=== PATIENT | female | born 1980 | race Two or more races ===

== ENCOUNTER 2020-09-10 09:15 | Emergency (ER) | payer MEDICAID, SELFPAY ==
--- NOTE | 2020-09-10 10:08 | CT_ITS ---
EXAMINATION: CT ABDOMEN AND PELVIS WITH CONTRAST CLINICAL INFORMATION: Right lower quadrant abdominal pain. Question appendicitis. COMPARISON: CT abdomen and pelvis 04/23/2011 TECHNIQUE: Multidetector volumetric images were obtained from the superior aspect of the liver through the pubic symphysis following administration 85 mL of Omnipaque 350 intravenous contrast. Sagittal and coronal reformatted images were obtained on the technologist's workstation. Oral contrast: No. This CT examination was performed using dose optimization techniques as appropriate, variously including the following: *Automated exposure control *Adjustment of mA and/or kV according to patient size (this includes techniques or standardized protocols for targeted exams where dose is matched to indication/reason for exam; i.e. extremities or head) *Use of iterative reconstruction technique DLP: 527 mGy-cm FINDINGS: LUNG BASES: The lung bases are clear. LIVER, GALLBLADDER, AND BILIARY TREE: The liver is normal in size, shape, and attenuation. No focal hepatic lesion or biliary ductal dilatation is present. The gallbladder is unremarkable with no evidence of radiopaque gallstones, gallbladder wall thickening, or obvious pericholecystic inflammatory changes. PANCREAS: Unremarkable. SPLEEN: Unremarkable. ADRENAL GLANDS: Unremarkable. KIDNEYS AND URETERS: The kidneys are normal in size, shape, and attenuation. No hydronephrosis, hydroureter, or calculi seen. No perinephric stranding. BLADDER: Unremarkable. GASTROINTESTINAL TRACT: There is scattered stool in the colon without distention. A few scattered diverticula are seen throughout the colon, as well. The small bowel loops are normal caliber. Appendix is normal. No inflammatory process seen in the abdomen. ABDOMINAL WALL: No significant hernia is appreciated. LYMPH NODES: Normal. VASCULAR: A retroaortic left renal vein is noted. The aorta is unremarkable. PELVIC VISCERA: The uterus is anteverted and appears unremarkable. No adnexal mass seen. There is no free fluid. OSSEOUS STRUCTURES: There are degenerative disc changes at L2-L3 and T11-T12 disc levels with mild ventral spondylosis. No lytic or sclerotic process seen. CT/CT abdomen pelvis w con IMPRESSION: Colonic diverticulosis without diverticulitis. Mild constipation. No acute intra-abdominal process seen.
[2020-09-10 10:10] VITALS: PULSE 59; RESP 16; TEMP 37.1; O2SAT 98; BMI 32.1
--- NOTE | 2020-09-10 10:22 | ED.ABDPAIN ---
HPI - Abdominal Pain General Stated Complaint: abd pain Time Seen by Provider: 09/10/20 10:07 Source: patient Mode of arrival: ambulatory Limitations: no limitations History of Present Illness HPI narrative: 40yoF c PMHx of atrial fibrillation, Graves disease, depression and substance abuse presenting to the ED c c/o right lower quadrant abdominal pain with associated nausea since yesterday. Denies any other symptoms related to this. Denies recent travel or sick contacts. Related Data Allergies Allergy/AdvReac Type Severity Reaction Status Date / Time acetaminophen AdvReac Intermediate DIARRHEA Verified 09/10/20 10:25 [From Tylenol-Codeine #3] codeine AdvReac Intermediate DIARRHEA Verified 09/10/20 10:25 [From Tylenol-Codeine #3] Review of Systems Review of Systems Constitutional : No Fever, No Chills Cardiovascular : No Chest Pain, No SOB Respiratory : No Cough Gastrointestinal : + Nausea, No Vomiting, No Diarrhea, + abdominal Pain, No Hematochezia, No Melena Genitourinary : No irregular bleeding, No Dysuria, No Urinary Frequency, No Hematuria,No Urinary Incontinence, No Urgency, No Flank Pain Musculoskeletal : No joint pain, No Myalgias, No Joint Swelling Skin : No Skin Lesions, No rash Neuro : No Weakness Yes all other systems are reviewed and are negative Physical Exam Vital Signs: Vital Signs: Last Vital Signs Temp 98.8 F 09/10/20 10:10 Pulse 59 09/10/20 10:10 Resp 16 09/10/20 10:10 BP 131/76 09/10/20 10:40 Pulse Ox 98 09/10/20 10:10 Body Mass Index 32.1 vital signs have been reviewed as normal and appeared to be correct. Blood pressure normal. Heart rate normal. Respiration rate normal. Temperature normal. Oxygen saturation normal. Appearance: Alert. Oriented X3. No acute distress. Head: Normal external exam. Normocephalic. Eyes: PERRLA. EOMI. Conjunctiva and sclera normal. Eyelids normal. ENT: Pharynx normal. Uvula midline. Moist mucous membranes. Neck: Normal inspection. Neck supple. FROM. No adenopathy. No meningeal signs. CVS: Normal heart rate and rhythm. Heart sound normal. No murmurs noted. Pulses normal throughout. Respiratory: No respiratory distress. Painless inspiration. Breath sounds normal. No wheezes/rales/rhonchi noted. Chest nontender. No accessory muscle usage noted or decreased air movement noted. Abdomen: Soft and TTP at RLQ abdomen with guarding. No rigidity. Bowel sounds normal in all 4 quadrants. No distention noted. No organomegaly noted. No visible injury noted. No rebound tenderness. Positive Rovsing sign. Positive obturator's sign. Positive psoas sign. Negative Diana sign Back: No CVA tenderness. Full range of motion noted. Skin: Skin warm and dry. Normal skin color. Normal skin turgor. No rashes/lesions/lacerations noted. Extremities: Extremities exhibit normal range of motion. Extremities nontender. Neuro: Oriented X 3. No motor deficit. No sensory deficit. Reflexes normal. Course Course Course Narrative: 10:19am - 40yoF c PMHx of atrial fibrillation, Graves disease, depression and substance abuse presenting to the ED c c/o right lower quadrant abdominal pain with associated nausea since yesterday. - concern for appendicitis vs kidney stone vs pyelonephritis/UTI. - Plan: Labs, UA, UHCG, CT scan of abd/pelvis c IV contrast. Provide IV fluids, 2 mg of morphine, 4 mg of Zofran then re-evaluate. MDM - Abdominal Pain Medical Records Attestation: I reviewed the patient's medical records. Lab Data Attestation: I reviewed the patient's lab results. Result diagrams: 09/10/20 10:19 12 10:19 Labs: Lab Results 09/10/20 09/10/20 Range/Units 10:15 10:19 PT 11.7 (10.8-13.0) SEC INR 1.0 (0.9-1.1) APTT 33.6 (24.1-38.0) SEC Urine Color YELLOW Urine Appearance HAZY Urine pH 7.0 (5.0-8.0) Ur Specific [place] 1.010 (1.005-1.025) Urine Protein NEG (NEG-TRACE) MG/DL Urine Glucose (UA) NEG (NEG) MG/DL Urine Ketones NEG (NEG) MG/DL Urine Blood 3+ H (NEG) Urine Nitrite NEG (NEG) Ur Leukocyte Esterase NEG (NEG) Urine RBC 5-9 H (0) /HPF Urine WBC 0 (0-4) /HPF Ur Squamous Epith Cells 1+ /LPF Urine Bacteria NONE /LPF Urine Test NEGATIVE (NEGATIVE) [facility] Past Medical History Attestation statement: The following information was validated with the patient. Social History Social History Smoked in Last 30 Days: No Use of substances other than those prescribed or required for medical reasons: No
[2020-09-10 10:24] LABS: Glucose Urine UA NEG (NEG); Leukocyte Esterase Urine NEG (NEG); Nitrite Urine NEG (NEG); Urine Blood 3+ (NEG); Urine Ketones NEG (NEG); Urine Protein NEG (NEG-TRACE)
[2020-09-10] MEDS: 0.9 % Sodium Chloride 1,000 ML 999 ML IVCONT (10:26)
[2020-09-10 10:27] LABS: Appearance Urine HAZY; Color Urine YELLOW
[2020-09-10 10:29] LABS: UPreg QC Valid YES; Urine Pregnancy NEGATIVE (NEGATIVE)
[2020-09-10] MEDS: ondansetron HCL 4 MG/2 ML VIAL IVPUSH (10:31)
[2020-09-10 10:35] LABS: MANUAL DIFF FLAG NO
[2020-09-10 10:37] LABS: Squamous Epithelial Cell Urine 1+ /LPF; WBC Urine 0 /HPF (0-4)
[2020-09-10] MEDS: Morphine Sulfate 4 MG/ML CARTRIDGE 2 MG IVPUSH (10:37)
[2020-09-10 10:40] VITALS: BP 131/76
[2020-09-10 10:47] LABS: Prothrombin Time 11.7 SEC (10.8-13.0)
[2020-09-10 10:48] LABS: Basophils Percent Auto 0.2 % (0-2); Eosinophils Absolute Auto 0.1 X10*3/uL (0.0-0.4); Eosinophils Percent Auto 0.9 % (0-4); Hematocrit 42.8 % (37-47); Hemoglobin 13.8 g/dl (12.0-16.0); Imm Gran Abs Auto 0.01 X10*3/uL (0.00-0.03); Imm Gran Pct Auto 0.2 % (0.0-0.4); Lymphocytes Absolute Auto 1.3 X10*3/uL (1.2-4.9); Mean Corpuscular HGB Conc 32.2 g/dl (31.0-35.0); Mean Corpuscular Hemoglobin 29.7 pg (27.0-33.0); Mean Platelet Volume 9.6 fL (9.4-12.3); Monocytes Absolute Auto 0.6 X10*3/uL (0.1-1.2); Monocytes Percent Auto 11.3 % (2-11); Neutrophils Absolute Auto 3.4 X10*3/uL (2.0-8.3); Neutrophils Percent Auto 63.4 % (45-73); Platelet Count 266 X10*3/uL (160-400); Red Blood Count 4.65 X10*6/uL (4.20-5.50); Red Cell Distribution Width 11.2 % (11.0-16.0); White Blood Count 5.3 X10*3/uL (4.8-10.8)
[2020-09-10 10:49] LABS: Partial Thromboplastin Time 33.6 SEC (24.1-38.0)
[2020-09-10 11:10] LABS: Alanine Aminotransferase 14 U/L (0-31); Albumin Level 3.9 g/dL (3.5-5.0); Alkaline Phosphatase 62 U/L (39-117); Anion Gap 11 (12-20); Aspartate Amino Transferase 19 U/L (5-31); Bilirubin Direct 0.4 mg/dL (0.0-0.5); Bilirubin Total 0.8 mg/dL (0.0-1.0); Blood Urea Nitrogen 10 mg/dL (9-16); Calcium 8.7 mg/dL (8.4-10.2); Carbon Dioxide 28 mmol/L (22-29); Chloride 103 mmol/L (96-108); Creatinine Clr Calc Pharmacy 92.4; Estimated Glomerular Filt Rate > 60; Glucose Random 87 mg/dL (60-115); Potassium 4.5 mmol/l (3.3-5.1); Sodium 137 mmol/L (135-145); Total Protein 7.2 g/dL (6.5-8.0)
[2020-09-10 11:23] VITALS: BP 155/78; PULSE 64; O2SAT 97
[2020-09-10] MEDS: iohexoL 350 MG/ML 100 ML INFUS..BTL 85 ML IV (12:02)
--- NOTE | 2020-09-10 13:41 | PC.NURSE ---
pt reports nausea and abdominal pain. HE is making a growling vocalization. Pt was medicated for nausea, was quiet for about 10 minutes but reports SX have not improved. VS stable.
[2020-09-10 14:29] VITALS: BP 145/77; PULSE 59; RESP 16; TEMP 37.3; O2SAT 98
== END 2020-09-10 15:45 | disposition home or self-care (01) ==
PROVIDERS: Physician Assistant Medical; Emergency Provider Emergency Medicine
DX: K57.90 Diverticulosis of intestine, part unspecified, without perforation or abscess without bleeding (principal); K59.00 Constipation, unspecified; I48.91 Unspecified atrial fibrillation; F19.10 Other psychoactive substance abuse, uncomplicated; E05.00 Thyrotoxicosis with diffuse goiter without thyrotoxic crisis or storm
CPT/HCPCS: 36415; 74177; 80048; 80076; 81001; 81025; 83735; 85025; 85610; 85730; 96361; 96374; 96375; 96376; 99284; J2270; J2405; Q9967

== ENCOUNTER 2020-10-20 11:36 | Outpatient (REF) | payer MEDICAID, SELFPAY | END 2020-10-20 11:37 | disposition home or self-care (01) | LOC: HO.LAB 11:36 | PROVIDERS: Visit Provider Internal Medicine | DX: Z20.822 Contact with and (suspected) exposure to COVID-19 (principal) | CPT/HCPCS: 36415; C9803; U0003 ==

== ENCOUNTER 2020-11-13 09:58 | Outpatient (REF) | payer MEDICAID, SELFPAY ==
--- NOTE | ~2020-11-13 | US_ITS ---
EXAMINATION: US ABDOMEN COMPLETE CLINICAL INFORMATION: Right lower quadrant pain. COMPARISON: CT abdomen and pelvis 09/10/2020. Ultrasound abdomen complete 04/21/2017. TECHNIQUE: Real-time imaging of the abdominal viscera. FINDINGS: PANCREAS: The visualized pancreatic head and body are unremarkable. The tail is obscured by overlying bowel gas. ABDOMINAL AORTA: The proximal, mid, and distal segments are normal in caliber. INFERIOR VENA CAVA: Visualized portions are normal. LIVER: Normal. The liver is normal in size. The liver contour is normal. Parenchymal echogenicity is normal. No focal hepatic lesion. There is no intrahepatic biliary duct dilatation seen. GALLBLADDER: Normal. The gallbladder is physiologically distended without evidence of stones, sludge, polyps, wall thickening or pericholecystic fluid. COMMON BILE DUCT: Normal in caliber measuring 0.3 cm in diameter. RIGHT KIDNEY: Normal. No hydronephrosis. No renal calculi or focal parenchymal lesions. The kidney measures 11.0 cm in maximum dimension. LEFT KIDNEY: Simple upper pole cyst measuring 0.5 cm. No hydronephrosis or renal calculi. The kidney measures 10.6 cm in maximum dimension. SPLEEN: Normal. The spleen measures 8.7 cm in maximum dimension. FREE FLUID: None. US/US abdomen complete IMPRESSION: Unremarkable examination.
== END 2020-11-13 09:59 | disposition home or self-care (01) ==
LOC: HO.US 09:58
PROVIDERS: Visit Provider Nurse Practitioner Primary Care
DX: R10.31 Right lower quadrant pain (principal)
CPT/HCPCS: 76700

== ENCOUNTER 2020-11-17 10:02 | Outpatient (REF) | payer MEDICAID, SELFPAY ==
[2020-11-17 11:39] LABS: Free T4 (Free Thyroxine) 1.19 ng/dL (0.71-1.85); Thyroid Stimulating Hormone 0.85 uIU/mL (0.32-4.0); Vitamin D 25-OH Total 43.7 ng/mL (>30)
== END 2020-11-17 10:03 | disposition home or self-care (01) ==
LOC: HO.LAB 10:02
PROVIDERS: Visit Provider Internal Medicine Endocrinology, Diabetes & Metabolism
DX: E89.0 Postprocedural hypothyroidism (principal); R79.89 Other specified abnormal findings of blood chemistry
CPT/HCPCS: 36415; 82306; 84439; 84443

== ENCOUNTER → 2020-11-27 10:46 | Outpatient (BNVA) | payer MEDICAID, SELFPAY | PROVIDERS: Visit Provider Internal Medicine Endocrinology, Diabetes & Metabolism ==

== ENCOUNTER 2021-04-02 10:30 | Outpatient (REF) | payer MEDICAID, SELFPAY ==
--- NOTE | ~2021-04-02 | US_ITS ---
EXAMINATION: PELVIC ULTRASOUND CLINICAL INFORMATION: Dysmenorrhea COMPARISON: Previous pelvic ultrasound August 2020 TECHNIQUE: Transabdominal and transvaginal pelvic ultrasound was performed. Transvaginal exam was performed for better visualization of the uterus and ovaries. Exam is limited due to body habitus. FINDINGS: The uterus is anteverted and measures 9 x 4 x 5 cm in dimension. No focal uterine lesion is seen. Endometrial thickness is normal measuring 1 cm. The cervix is normal appearing. The right ovary is normal-appearing and measures 2 x 1.8 x 1.8 cm. The left ovary is not seen. There is no fluid in the pelvis. US/US pelvic and transvaginal IMPRESSION: Limited exam. Normal-appearing uterus and right ovary. Left ovary not seen.
== END 2021-04-02 10:31 | disposition home or self-care (01) ==
LOC: HO.US 10:30
PROVIDERS: PCP Nurse Practitioner Primary Care; Visit Provider Advanced Practice Midwife
DX: N94.6 Dysmenorrhea, unspecified (principal); N92.0 Excessive and frequent menstruation with regular cycle
CPT/HCPCS: 76830; 76856

== ENCOUNTER 2021-05-25 09:38 | Emergency (ER) | payer MEDICAID, SELFPAY ==
[2021-05-25 09:55] VITALS: BP 98/60; PULSE 68; RESP 18; TEMP 36.5; O2SAT 98; BMI 32.9
--- NOTE | 2021-05-25 09:57 | ED.NECK ---
HPI - Neck Pain/Injury General Chief Complaint: Neck Pain/Injury Stated Complaint: NECK PAIN Time Seen by Provider: 05/25/21 09:57 Source: patient Mode of arrival: ambulatory Limitations: no limitations History of Present Illness HPI Narrative: 40 y/o female presenting with left sided neck pain for the last 2 weeks. 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 She does a lot of lifting and physical work. She reports the pain is located long the left posterior portion of her neck and radiates into her left posterior shoulder. It is worse with rotation of her head. No fevers, headaches, no known specific injury. No numbness or tingling in her arm. No arm weakness. She took Tylenol yesterday with some mild improvement. MD complaint: neck pain Onset (ago): week(s) (2) Place: home and work Radiation: left lateral, left shoulder and upper back Severity: moderate Severity scale (1-10): 6 Quality: aching and spasming Duration: constant Relieving factors: immobilization and remaining still Exacerbating factors: movement of neck Context: unknown Associated symptoms: none Treatments prior to arrival: none Related Data Home Medications Medication Instructions Recorded Confirmed cetirizine 10 mg tablet 10 mg PO DAILY PRN 11/27/20 11/27/20 Previous Rx's Medication Instructions Recorded cholecalciferol (vitamin D3) 25 25 mcg PO DAILY 30 Days #30 cap 11/27/20 mcg (1,000 unit) capsule Levoxyl 137 mcg tablet 137 mcg PO DAILY 30 Days #30 tab NS 01/15/21 (levothyroxine) cyclobenzaprine 5 mg tablet 5 mg PO TID PRN #14 tab 05/25/21 ibuprofen 600 mg tablet 600 mg PO Q8H PRN #14 tab 05/25/21 lidocaine 5 % topical patch 1 patch TOPICAL DAILY #15 ea 05/25/21 (Lidoderm) Allergies Allergy/AdvReac Type Severity Reaction Status Date / Time acetaminophen AdvReac Intermediate DIARRHEA Verified 09/10/20 10:25 [From Tylenol-Codeine #3] codeine AdvReac Intermediate DIARRHEA Verified 09/10/20 10:25 [From Tylenol-Codeine #3] Review of Systems Review of Systems: Constitutional: No Fever, No Chills ENT/Mouth: No sore throat, No Swallowing Difficulty Cardiovascular: No Chest Pain, No SOB Respiratory: No Cough, No Sputum Musculoskeletal: No joint pain, + Myalgias Skin: No Skin Lesions, No rash Neuro: No Weakness, No Numbness, No Dizziness, No Headache Heme/Lymph: No Lymphadenopathy PMFSH Past Medical History Attestation statement: The following information was validated with the patient. Medical History History of Graves' disease Hypothyroidism Vitamin D deficiency Surgical History Hx of total thyroidectomy Hx of tubal ligation Family History Family History (Updated 11/27/20 @ 10:48 by IVONE Mina) Father Diabetes mellitus Mother No problems noted. Social History Social History (Updated 11/27/20 @ 10:48 by IVONE Mina) Advance Directives: No Advance Directives Information Provided: No Patient : No Physical Exam Vital Signs: Vital Signs: Last Vital Signs Temp 97.7 F 05/25/21 09:55 Pulse 68 05/25/21 09:55 Resp 18 05/25/21 09:55 BP 98/60 05/25/21 09:55 Pulse Ox 98 05/25/21 09:55 Body Mass Index 32.9 Appearance: Alert. Oriented X3. No acute distress. Eyes: Pupils equal, round and reactive to light. ENT: Pharynx normal. Neck: Normal inspection. Neck supple. Left lateral and posterior neck with soft tissue tenderness and palpable spasm of upper trapezius. pain with rotation of the head to the left and right.. no nuchal rigidity. CVS: Normal heart rate and rhythm. Pulses normal. Skin: Skin warm and dry. Normal skin color. Normal skin turgor. No rashes. Extremities: No lower extremity edema. Normal inspection of bilateral UE with normal passive ROM of bilateral shoulder. Equal supervisor fiber locking strength. Neuro: Oriented X 3. No motor deficit. No sensory deficit. Course Course Course Narrative: 40 y/o female presenting with left sided neck and upper back pain x2 week. Exam and clinical presentation are consistent with muscle strain and spasm. Will treat with NSAID, muscle relaxer and lidoderm. She is stable for d/c home. Encouraged to f/u with PCP, she would likely benefit from PT. She agrees with plan. Work note provided. Critical Care Time Critical Care Time Critical Care Time: No Discharge Plan Discharge Clinical Impression: Strain of neck muscle Qualifiers: Encounter type: initial encounter Qualified Code(s): S16.1XXA - Strain of muscle, fascia and tendon at neck level, initial encounter Patient Disposition: Home, Self-Care Instructions: Cervical Strain (ED) Additional Instructions: Your pain is most likely due to strain and spasm of the muscles on the left side of your neck. Limit lifting and rest. Use heat several times per day for 20 minutes at time. You can try gentle massage and stretching of the muscles as tolerated. Take medications as prescribed to help with pain and discomfort. Follow up with your Primary Care Doctor this week. If your pain worsens, if you develop new numbness, tingling, weakness, or any other concerning symptomsl 911 or come back to the ER right away for evaluation. Prescriptions: New cyclobenzaprine 5 mg tablet 5 mg PO TID PRN (Reason: muscle spasm) Qty: 14 RF: 0 lidocaine [Lidoderm] 5 % adhesive patch,medicated 1 patch topical DAILY Qty: 15 RF: 0 ibuprofen 600 mg tablet 600 mg PO Q8H PRN (Reason: pain) Qty: 14 RF: 0 No Action levothyroxine [Levoxyl] 137 mcg tablet 137 mcg PO DAILY 30 Days Qty: 30 RF: 11 cetirizine 10 mg tablet 10 mg PO DAILY PRNRF: 0 cholecalciferol (vitamin D3) 25 mcg (1,000 unit) capsule 25 mcg PO DAILY 30 Days Qty: 30 RF: 11 Referrals: Radha Crum MENTAL HEALTH PROGRAM SPECIALIST [Primary Care Provider] - 2 days Stand Alone Forms: Work/School Release
== END 2021-05-25 10:38 | disposition home or self-care (01) ==
PROVIDERS: Emergency Provider Emergency Medicine; PCP Nurse Practitioner Primary Care
DX: S16.1XXA Strain of muscle, fascia and tendon at neck level, initial encounter (principal); M54.2 Cervicalgia; M54.5 Low back pain; X50.0XXA Overexertion from strenuous movement or load, initial encounter; Y93.9 Activity, unspecified; Y92.9 Unspecified place or not applicable; Y99.0 Civilian activity done for income or pay; Z79.899 Other long term (current) drug therapy
CPT/HCPCS: 99283

== ENCOUNTER 2021-07-17 08:44 | Emergency (ER) | payer MEDICAID, SELFPAY ==
[2021-07-17 08:49] VITALS: BP 139/76; PULSE 67; RESP 18; TEMP 36.5; O2SAT 97; BMI 33.3
--- NOTE | 2021-07-17 09:48 | ED.SKABFB ---
HPI - Skin/Abscess/Foreign Bdy General Chief complaint: Skin/Abscess/Foreign Body Stated complaint: itchy painful hands Time Seen by Provider: 07/17/21 09:14 Source: patient Mode of arrival: ambulatory Limitations: no limitations History of Present Illness complaint: rash Onset (ago): day(s) (Past few days worse today) Location: LUE, L hand, R hand, LLE and RLE Severity: mild Quality: constant and pruritic Pain Consistency: constant Relieving factors: none Exacerbating factors: none Context: none Associated symptoms: denies other symptoms Treatments prior to arrival: none Related Data Home Medications Medication Instructions Recorded Confirmed cetirizine 10 mg tablet 10 mg PO DAILY PRN 11/27/20 11/27/20 Previous Rx's Medication Instructions Recorded cholecalciferol (vitamin D3) 25 25 mcg PO DAILY 30 Days #30 cap 11/27/20 mcg (1,000 unit) capsule Levoxyl 137 mcg tablet 137 mcg PO DAILY 30 Days #30 tab NS 01/15/21 (levothyroxine) cyclobenzaprine 5 mg tablet 5 mg PO TID PRN #14 tab 05/25/21 ibuprofen 600 mg tablet 600 mg PO Q8H PRN #14 tab 05/25/21 lidocaine 5 % topical patch 1 patch TOPICAL DAILY #15 ea 05/25/21 (Lidoderm) diphenhydramine HCl 25 mg tablet 50 mg PO Q6-8H PRN #10 tab 07/17/21 (Benadryl Allergy) famotidine 20 mg tablet (Pepcid) 20 mg PO BID #10 tab 07/17/21 hydrocortisone 2.5 % topical 1 appl TOPICAL QD-TID PRN #454 g 07/17/21 ointment prednisone 20 mg tablet 40 mg PO DAILY 5 Days #10 tab 07/17/21 Allergies Allergy/AdvReac Type Severity Reaction Status Date / Time acetaminophen AdvReac Intermediate DIARRHEA Verified 09/10/20 10:25 [From Tylenol-Codeine #3] codeine AdvReac Intermediate DIARRHEA Verified 09/10/20 10:25 [From Tylenol-Codeine #3] Review of Systems Review of Systems: Constitutional : No Fever, No Chills , no body aches, no recent illness Head/Face: No facial swelling, No facial redness ENT/Mouth : No oral/throat swelling, No Hoarseness, No Swallowing Difficulty Eyes: No Eye Pain, No Swelling, No Redness Cardiovascular : No Chest Pain, No SOB, No palpitations Respiratory : No Cough, No Sputum, No Wheezing, No Smoke Exposure, No Dyspnea Gastrointestinal : No Nausea, No Vomiting, No Diarrhea, No abdominal Pain Genitourinary : No Dysuria, No Urinary Frequency, No Hematuria Musculoskeletal : No joint pain, No Myalgias, No Joint Swelling Skin : No Skin Lesions, positive rash Neuro : No Weakness, No Numbness, No Headache, No dizziness, No tingling Psych : No Anxiety/Panic, No Depression Heme/Lymph: No Bruising, No Lymphadenopathy Endocrine : No Polyuria, No Polydipsia Denies changes in lotions or detergents. Denies new medications or any changes in medications. Denies drainage from rash. Denies any recent sick contacts or recent travel. Yes all other systems are reviewed and are negative [facility] Past Medical History Attestation statement: The following information was validated with the patient. Medical History History of Graves' disease Hypothyroidism Vitamin D deficiency Surgical History Hx of total thyroidectomy Hx of tubal ligation Family History Family History Father Diabetes mellitus Mother No problems noted. Social History Social History Advance Directives: No Physical Exam Vital Signs: Vital Signs: Last Vital Signs Temp 97.7 F 07/17/21 08:49 Pulse 67 07/17/21 08:49 Resp 18 07/17/21 08:49 BP 139/76 07/17/21 08:49 Pulse Ox 97 07/17/21 08:49 Body Mass Index 33.3 vital signs have been reviewed as normal and appeared to be correct. Blood pressure normal. Heart rate normal. Respiration rate normal. Temperature normal. Oxygen saturation normal. Appearance: Alert. Oriented X3. No acute distress. Head: Normal external exam. Normocephalic. Eyes: PERRLA. EOMI. Conjunctiva and sclera normal. Eyelids normal. ENT: Pharynx normal. Uvula midline. Moist mucous membranes. No lesions noted in the oropharynx. Neck: Normal inspection. Neck supple. FROM. No adenopathy. No meningeal signs. CVS: Normal heart rate and rhythm. Heart sound normal. No murmurs noted. Pulses normal throughout. Respiratory: No respiratory distress. Painless inspiration. Breath sounds normal. No wheezes/rales/rhonchi noted. Chest nontender. No accessory muscle usage noted or decreased air movement noted. Abdomen: Soft and nontender. Nondistended. No guarding. No rigidity. Bowel sounds normal in all 4 quadrants. No distention noted. No organomegaly noted. No visible injury noted. No rebound tenderness. Negative Rovsing sign. Negative obturator's sign. Negative psoas sign. Negative Diana sign. Back: No CVA tenderness. Full range of motion noted. Skin: Skin warm and dry. Normal skin color. Normal skin turgor. Patient noted to have macular papular rash to the palms of the hands and on the dorsal aspect near the wrist not in between the web spaces and it appears to be going up the right forearm and she is noted to have some on the left upper arm and her bilateral ankles. There is no rash noted to the soles of the feet. She reports it is pruritic in nature. No lesions/vesicle/pustules are noted. No lacerations noted. Extremities: Extremities exhibit normal range of motion. Extremities nontender. Neuro: Oriented X 3. No motor deficit. No sensory deficit. Reflexes normal. Normal steady gait. Course Course Course Narrative: 40-year-old female presenting to the ED with complaints of an itchy rash to the bilateral hands that is starting to go up her arms and around her ankles for the past few days worse today. On exam she has macular papular rash to the palms of her hands. No vesicles are noted. It appears almost like [id number] although she has not been around any children and there is no recent sick contacts or recent travel. 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 She reports that she was tested for syphilis a few months ago was negative. She also reports she has had allergy testing in the past and has had many seasonal allergies. Therefore I explained to her that we should obtain an RPR to test for syphilis. And will treat for possible allergic reaction. Along with instructions to follow-up with PCP for allergy testing and to return if any new or worsening symptoms. Patient understands agrees with this plan. MDM - Skin/Abscess/Foreign Bdy Medical Records Attestation: I reviewed the patient's medical records. Lab Data Attestation: I reviewed the patient's lab results. Discharge Plan Discharge Clinical Impression: Allergic reaction Patient Disposition: Home, Self-Care Instructions: General Allergic Reaction (ED) Additional Instructions: You have pending lab results if any are positive you will be contacted. Prescriptions: New diphenhydramine HCl [Benadryl Allergy] 25 mg tablet 50 mg PO Q6-8H PRN (Reason: allergic reaction) Qty: 10 RF: 0 prednisone 20 mg tablet 40 mg PO DAILY 5 Days Qty: 10 RF: 0 famotidine [Pepcid] 20 mg tablet 20 mg PO BID Qty: 10 RF: 0 hydrocortisone 2.5 % ointment 1 appl topical QD-TID PRN (Reason: skin irritation) Qty: 454 RF: 0 No Action levothyroxine [Levoxyl] 137 mcg tablet 137 mcg PO DAILY 30 Days Qty: 30 RF: 11 cyclobenzaprine 5 mg tablet 5 mg PO TID PRN (Reason: muscle spasm) Qty: 14 RF: 0 lidocaine [Lidoderm] 5 % adhesive patch,medicated 1 patch topical DAILY Qty: 15 RF: 0 ibuprofen 600 mg tablet 600 mg PO Q8H PRN (Reason: pain) Qty: 14 RF: 0 cetirizine 10 mg tablet 10 mg PO DAILY PRNRF: 0 cholecalciferol (vitamin D3) 25 mcg (1,000 unit) capsule 25 mcg PO DAILY 30 Days Qty: 30 RF: 11 Referrals: Radha Crum, MECHANICAL MAINTENANCE FOREMAN [Primary Care Provider] - 2 days Stand Alone Forms: Work/School Release Print Language: Dominican
[2021-07-17] MEDS: Famotidine 20 MG TABLET PO (09:59)
[2021-07-17] MEDS: predniSONE 20 MG TABLET 40 MG PO (09:59)
[2021-07-17] MEDS: diphenhydrAMINE HCL 25 MG TABLET PO (09:59)
[2021-07-17 10:51] LABS: Syphilis Screen Nonreactive (Nonreactive)
== END 2021-07-17 11:04 | disposition home or self-care (01) ==
PROVIDERS: Physician Assistant Medical; Emergency Provider Emergency Medicine; PCP Nurse Practitioner Primary Care
DX: L23.9 Allergic contact dermatitis, unspecified cause (principal); L29.9 Pruritus, unspecified; Z79.899 Other long term (current) drug therapy
CPT/HCPCS: 36415; 86780; 99283; Q0163

== ENCOUNTER 2021-09-04 08:47 | Emergency (ER) | payer MEDICAID, SELFPAY ==
[2021-09-04 09:10] VITALS: BP 110/42; PULSE 79; RESP 18; TEMP 36; O2SAT 97; BMI 33.0
--- NOTE | 2021-09-04 09:47 | ECG_ITS ---
Test Reason : GEN MED Blood Pressure : / mmHG Vent. Rate : 066 BPM Atrial Rate : 066 BPM P-R Int : 208 ms QRS Dur : 084 ms QT Int : 380 ms P-R-T Axes : 043 041 030 degrees QTc Int : 398 ms Normal sinus rhythm Normal ECG When compared with ECG of 14-FEB-2015 13:58, Sinus rhythm has replaced Atrial fibrillation Vent. rate has decreased BY 62 BPM QRS voltage has decreased Nonspecific T wave abnormality no longer evident in Lateral leads Referred By: Pat Roman Electronically Signed By:Kaveh Saenz
[2021-09-04] MEDS: Lidocaine 4 % Patch ADH..PATCH 1 PATCH TRANSDERMA (10:19)
[2021-09-04] MEDS: diazePAM 5 MG TABLET PO (10:19)
[2021-09-04] MEDS: Ketorolac Tromethamine 30 MG/ML VIAL IM (10:19)
--- NOTE | 2021-09-04 11:25 | ED.NECK ---
HPI - Neck Pain/Injury General Chief Complaint: Neck Pain/Injury <MICHELLE Patel - Last Filed: 09/04/21 11:53> Stated Complaint: R SHOULDER NECK PAIN <MICHELLE Patel - Last Filed: 09/04/21 11:53> Time Seen by Provider: 09/04/21 09:37 <MICHELLE Patel - Last Filed: 09/04/21 11:53> Source: patient <MICHELLE Patel - Last Filed: 09/04/21 11:53> Mode of arrival: ambulatory <MICHELLE Patel - Last Filed: 09/04/21 11:53> History of Present Illness HPI Narrative: 41-year-old female with a past medical history of hypothyroid, Graves, vitamin-D deficiency, presenting to the ED complaining of right-sided neck pain radiating to right shoulder s/p waking up this morning. Reports pain with neck and arm ROM. Denies known injury/trauma or fall. Denies numbness, tingling, weakness, urinary incontinence/retention, chest pain, shortness of breath <MICHELLE Patel - Last Filed: 09/04/21 11:53> MD complaint: neck pain <MICHELLE Patel - Last Filed: 09/04/21 11:53> Onset (ago): hour(s) <MICHELLE Patel - Last Filed: 09/04/21 11:53> Related Data Home Medications: Home Medications Medication Instructions Recorded Confirmed cetirizine 10 mg tablet 10 mg PO DAILY PRN 11/27/20 11/27/20 Previous Rx's Medication Instructions Recorded cholecalciferol (vitamin D3) 25 25 mcg PO DAILY 30 Days #30 cap 11/27/20 mcg (1,000 unit) capsule Levoxyl 137 mcg tablet 137 mcg PO DAILY 30 Days #30 tab NS 01/15/21 (levothyroxine) cyclobenzaprine 5 mg tablet 5 mg PO TID PRN #14 tab 05/25/21 ibuprofen 600 mg tablet 600 mg PO Q8H PRN #14 tab 05/25/21 lidocaine 5 % topical patch 1 patch TOPICAL DAILY #15 ea 05/25/21 (Lidoderm) diphenhydramine HCl 25 mg tablet 50 mg PO Q6-8H PRN #10 tab 07/17/21 (Benadryl Allergy) famotidine 20 mg tablet (Pepcid) 20 mg PO BID #10 tab 07/17/21 hydrocortisone 2.5 % topical 1 appl TOPICAL QD-TID PRN #454 g 07/17/21 ointment prednisone 20 mg tablet 40 mg PO DAILY 5 Days #10 tab 07/17/21 acetaminophen 500 mg tablet 500 mg PO Q6H PRN #20 tab 09/04/21 (Tylenol Extra Strength) cyclobenzaprine 5 mg tablet 5 mg PO Q8H PRN 5 Days #14 tab 09/04/21 lidocaine 5 % topical patch 1 patch TOPICAL DAILY PRN #30 ea 09/04/21 (Lidoderm) MDD remove after 12 hours naproxen 500 mg tablet 500 mg PO BID PRN 10 Days #20 tab 09/04/21 <MICHELLE Patel - Last Filed: 09/04/21 11:53> Allergies/Adverse Reactions: Allergies Allergy/AdvReac Type Severity Reaction Status Date / Time acetaminophen AdvReac Intermediate DIARRHEA Verified 09/10/20 10:25 [From Tylenol-Codeine #3] codeine AdvReac Intermediate DIARRHEA Verified 09/10/20 10:25 [From Tylenol-Codeine #3] <MICHELLE Patel - Last Filed: 09/04/21 11:53> Review of Systems Review of Systems: Constitutional: No Fever, No Chills ENT/Mouth: No Ear Pain, No Nasal Congestion,No sore throat, No Rhinorrhea, No Swallowing Difficulty Cardiovascular: No Chest Pain, No SOB Respiratory: No Cough, No Wheezing Gastrointestinal: No Nausea, No Vomiting, No Diarrhea, No Constipation, No Abdominal pain Genitourinary:No Dysuria, No Urinary Incontinence/retention, No Urgency, No Flank Pain Musculoskeletal: + joint pain, + Myalgias, No Joint Swelling Skin: No Skin Lesions, No rash Neuro: No Weakness, No Numbness, No Paresthesias <MICHELLE Patel Last Filed: 09/04/21 11:53> Yes all other systems are reviewed and are negative <MICHELLE Patel Last Filed: 09/04/21 11:53> [facility] Past Medical History Attestation statement: The following information was validated with the patient. <MICHELLE Patel Last Filed: 09/04/21 11:53> Medical History: Medical History History of Graves' disease Hypothyroidism Vitamin D deficiency <MICHELLE Patel - Last Filed: 09/04/21 11:53> Surgical History: Surgical History Hx of total thyroidectomy Hx of tubal ligation <MICHELLE Patel - Last Filed: 09/04/21 11:53> Family History Family History: Family History Father Diabetes mellitus Mother No problems noted. <MICHELLE Patel - Last Filed: 09/04/21 11:53> Social History Social History: Social History Advance Directives: No Advance Directives Information Provided: No Patient : No <MICHELLE Patel - Last Filed: 09/04/21 11:53> Physical Exam Vital Signs: Vital Signs: Last Vital Signs Temp 96.8 F 09/04/21 09:10 Pulse 79 09/04/21 09:10 Resp 18 09/04/21 09:10 BP 110/42 L 09/04/21 09:10 Pulse Ox 97 09/04/21 09:10 BMI result Body Mass Index 33.0 <MICHELLE Patel - Last Filed: 09/04/21 11:53> Vital Signs: Last Vital Signs Temp 96.8 F 09/04/21 09:10 Pulse 79 09/04/21 09:10 Resp 18 09/04/21 09:10 BP 110/42 L 09/04/21 09:10 Pulse Ox 97 09/04/21 09:10 BMI result Body Mass Index 33.0 <Trent Cristina MD - Last Filed: 09/24/21 07:04> Const: General: cooperative, healthy appearing and no acute distress <MICHELLE Patel - Last Filed: 09/04/21 11:53> Orientation/consciousness: patient oriented x3 <MICHELLE Patel - Last Filed: 09/04/21 11:53> Limitations: no limitations <MICHELLE Patel - Last Filed: 09/04/21 11:53> HENMT: Head: Yes normal to inspection and Yes atraumatic <Pat Roman TN - Last Filed: 09/04/21 11:53> Ears: hearing grossly normal bilaterally <Pat Roman TN - Last Filed: 09/04/21 11:53> General nose exam: Normal external nose present <Pat Roman TN - Last Filed: 09/04/21 11:53> Face and sinus: Yes normal facial exam <Pat Roman TN - Last Filed: 09/04/21 11:53> Eyes: General: appearance normal, both eyes and all related structures <Pat Roman TN - Last Filed: 09/04/21 11:53> EOM: EOMs intact bilaterally <Pat Roman TN - Last Filed: 09/04/21 11:53> Neck: Other: No midline cervical spinous tenderness. Neck stiffness/pain elicited on rightward and leftward neck rotation. Right-sided paraspinal MSK tenderness to palpation and right trapezius muscle tenderness to palpation <Pat Roman TN - Last Filed: 09/04/21 11:53> Neck: Yes normal visual inspection and Yes supple <Pat Roman TN - Last Filed: 09/04/21 11:53> Resp: Effort & Inspection: normal respiratory effort and no respiratory distress <Pat Roman TN - Last Filed: 09/04/21 11:53> Cardio: Rate: regular rate <Pat Roman TN - Last Filed: 09/04/21 11:53> Peripheral pulses: radial pulses present <Pat Roman TN - Last Filed: 09/04/21 11:53> : General: Yes no CVA tenderness <Pat Roman PA - Last Filed: 09/04/21 11:53> Back/Spine/Pelvis: Other: No midline thoracic/lumbar spinous tenderness/step-off or deformity <Pat Roman PA - Last Filed: 09/04/21 11:53> Back: no CVA tenderness <Pat Roman PA - Last Filed: 09/04/21 11:53> Skin: Rashes: no rashes <Pat Roman PA - Last Filed: 09/04/21 11:53> Wounds: no wounds <MICHELLE Patel - Last Filed: 09/04/21 11:53> Neuro: General: patient oriented x3 <MICHELLE Patel - Last Filed: 09/04/21 11:53> Gait exam (Neuro): Normal gait present <MICHELLE Patel - Last Filed: 09/04/21 11:53> Extrem: Other: Mild right shoulder/deltoid tenderness to palpation with decreased ROM secondary to pain. Right elbow/wrist/hand nontender with full range of motion intact. Neurovascular intact distally. <MICHELLE Patel - Last Filed: 09/04/21 11:53> General: Yes normal to inspection <MICHELLE Patel - Last Filed: 09/04/21 11:53> Course Course Course Narrative: -[id number]-patient reports symptomatic improvement after IM Toradol and p.o. Valium in the emergency department, has better range of motion. Plan for DC home <MICHELLE Patel - Last Filed: 09/04/21 11:53> MDM - Neck Pain/Injury MDM Narrative Medical decision making narrative: 41-year-old female with a past medical history of hypothyroid, Graves, vitamin-D deficiency, presenting to the ED complaining of right-sided neck pain radiating to right shoulder s/p waking up this morning. On exam vital signs stable, NAD/nontoxic, physical exam as above, no midline spinous tenderness, pain reproducible with palpation and movement. Likely MSK pain/spasming/strain. Low concern for cord compression, spinal abscess or cervical dissection. Plan: Symptomatic treatment, re-evaluate <MICHELLE Patel - Last Filed: 09/04/21 11:53> Medical Records Attestation: I reviewed the patient's medical records. <MICHELLE Patel - Last Filed: 09/04/21 11:53> Lab Data Attestation: I reviewed the patient's lab results. <MICHELLE Patel - Last Filed: 09/04/21 11:53> ECG Data Attestation: I personally reviewed and interpreted this ECG as follows: <MICHELLE Patel - Last Filed: 09/04/21 11:53> ECG interpretation date: 09/04/21 <MICHELLE Patel - Last Filed: 09/04/21 11:53> ECG interpretation time: 11:04 <MICHELLE Patel Last Filed: 09/04/21 11:53> Interpretation: EKG normal sinus rhythm at a rate of 66. Pr interval 208. QTC 398 <MICHELLE Patel Last Filed: 09/04/21 11:53> Discharge Plan Discharge Clinical Impression: Muscle spasms of neck <MICHELLE Patel Last Filed: 09/04/21 11:53> Patient Disposition: Home, Self-Care <MICHELLE Patel Last Filed: 09/04/21 11:53> Instructions: Muscle Spasm (ED) <MICHELLE Patel Last Filed: 09/04/21 11:53> Additional Instructions: Your pain is likely musculoskeletal Flexeril is a muscle relaxer, take at night as it makes you drowsy, do not drive, drink alcohol, or operate machinery while taking it Naproxen as an anti-inflammatory / pain medication, take with food Lidoderm patches are numbing patches, apply to painful area In addition take Tylenol at home If symptoms persist or worsen, pain becomes unbearable, you developed urinary retention or incontinence, or weakness return to the ED <MICHELLE Patel Last Filed: 09/04/21 11:53> Prescriptions: New acetaminophen [Tylenol Extra Strength] 500 mg tablet 500 mg PO Q6H PRN (Reason: pain or fever) Qty: 20 RF: 0 lidocaine [Lidoderm] 5 % adhesive patch,medicated 1 patch topical DAILY MDD remove after 12 hours PRN (Reason: pain) Qty: 30 RF: 0 naproxen 500 mg tablet 500 mg PO BID PRN (Reason: pain) 10 Days Qty: 20 RF: 0 cyclobenzaprine 5 mg tablet 5 mg PO Q8H PRN (Reason: pain (scale score 7-10)) 5 Days Qty: 14 RF: 0 No Action levothyroxine [Levoxyl] 137 mcg tablet 137 mcg PO DAILY 30 Days Qty: 30 RF: 11 cyclobenzaprine 5 mg tablet 5 mg PO TID PRN (Reason: muscle spasm) Qty: 14 RF: 0 lidocaine [Lidoderm] 5 % adhesive patch,medicated 1 patch topical DAILY Qty: 15 RF: 0 ibuprofen 600 mg tablet 600 mg PO Q8H PRN (Reason: pain) Qty: 14 RF: 0 diphenhydramine HCl [Benadryl Allergy] 25 mg tablet 50 mg PO Q6-8H PRN (Reason: allergic reaction) Qty: 10 RF: 0 prednisone 20 mg tablet 40 mg PO DAILY 5 Days Qty: 10 RF: 0 famotidine [Pepcid] 20 mg tablet 20 mg PO BID Qty: 10 RF: 0 hydrocortisone 2.5 % ointment 1 appl topical QD-TID PRN (Reason: skin irritation) Qty: 454 RF: 0 cetirizine 10 mg tablet 10 mg PO DAILY PRNRF: 0 cholecalciferol (vitamin D3) 25 mcg (1,000 unit) capsule 25 mcg PO DAILY 30 Days Qty: 30 RF: 11 <MICHELLE Patel - Last Filed: 09/04/21 11:53> Stand Alone Forms: Work/School Release <MICHELLE Patel - Last Filed: 09/04/21 11:53> Interventions: ED Discharge Assessment Last Done: 09/04/21 11:55 <MICHELLE Patel - Last Filed: 09/04/21 11:53> Discharge Date/Time: 09/04/21 11:57 <MICHELLE Patel - Last Filed: 09/04/21 11:53>
== END 2021-09-04 11:57 | disposition home or self-care (01) ==
PROVIDERS: Emergency Provider Emergency Medicine
DX: M62.830 Muscle spasm of back (principal); M54.2 Cervicalgia; I48.91 Unspecified atrial fibrillation; E55.9 Vitamin D deficiency, unspecified; E03.9 Hypothyroidism, unspecified; M25.511 Pain in right shoulder; Z79.899 Other long term (current) drug therapy
CPT/HCPCS: 93005; 96372; 99283; 99284; J1885

== ENCOUNTER 2021-11-27 10:01 | Outpatient (REF) | payer MEDICAID, SELFPAY ==
[2021-11-27 11:27] LABS: Free T4 (Free Thyroxine) 1.38 ng/dL (0.71-1.85); Thyroid Stimulating Hormone 0.49 uIU/mL (0.32-4.0)
== END 2021-11-27 10:02 | disposition home or self-care (01) ==
LOC: HO.LAB 10:01
PROVIDERS: PCP Nurse Practitioner Primary Care; Visit Provider Internal Medicine Endocrinology, Diabetes & Metabolism
DX: E89.0 Postprocedural hypothyroidism (principal)
CPT/HCPCS: 36415; 84439; 84443

== ENCOUNTER → 2021-12-01 09:25 | Outpatient (BNVA) | payer MEDICAID, SELFPAY | PROVIDERS: Visit Provider Internal Medicine Endocrinology, Diabetes & Metabolism | DX: E89.0 Postprocedural hypothyroidism (principal); E55.9 Vitamin D deficiency, unspecified; Z79.899 Other long term (current) drug therapy | CPT/HCPCS: 99212 ==

== ENCOUNTER 2022-03-09 09:33 | Outpatient (REF) | payer MEDICAID, SELFPAY ==
--- NOTE | ~2022-03-09 | MM_ITS ---
EXAMINATION: MM SCREENING DIGITAL BREAST TOMOSYNTHESIS, BILATERAL CLINICAL INFORMATION: Screening. Asymptomatic. The lifetime risk of breast cancer based on the Tyrer-Cuzick Model is 11%. COMPARISON: Mammography: 05/01/2018 (baseline). TECHNIQUE: Digital breast tomosynthesis is performed in both the craniocaudal and mediolateral oblique views along with computer-aided detection (CAD). Synthesized 2D images are generated from the tomosynthesis. FINDINGS: There are scattered areas of fibroglandular density (ACR BI-RADS breast composition Category b). There are no significant masses, abnormal calcifications, or other abnormalities. Parenchymal pattern is similar to prior baseline exam. The axilla and skin contours are unremarkable. MM/MM tomosynthesis screening BI IMPRESSION: There are no significant changes from prior baseline study. ASSESSMENT: BI-RADS 1: Negative RECOMMENDATION: Routine annual mammography screening. This patient's information was entered into a reminder system with a target due date for their next mammogram.
== END 2022-03-09 09:34 | disposition home or self-care (01) ==
LOC: HO.MAMMO 09:33
PROVIDERS: PCP Nurse Practitioner Primary Care; Visit Provider Nurse Practitioner Primary Care
DX: Z12.31 Encounter for screening mammogram for malignant neoplasm of breast (principal)
CPT/HCPCS: 77063; 77067

== ENCOUNTER 2023-04-19 09:17 | Outpatient (REF) | payer MEDICAID, SELFPAY ==
--- NOTE | ~2023-04-19 | MM_ITS ---
EXAMINATION: MM SCREENING DIGITAL BREAST TOMOSYNTHESIS, BILATERAL CLINICAL INFORMATION: Screening. Asymptomatic. The lifetime risk of breast cancer based on the Tyrer-Cuzick Model is 9.9%. COMPARISON: Mammography: This study is compared with prior exams dating back to 2018. TECHNIQUE: Digital breast tomosynthesis is performed in both the craniocaudal and mediolateral oblique views along with computer-aided detection (CAD). Synthesized 2D images are generated from the tomosynthesis. FINDINGS: There are scattered areas of fibroglandular density (ACR BI-RADS breast composition Category b). There are no significant masses, abnormal calcifications, or other abnormalities. MM/MM tomosynthesis screening BI IMPRESSION: No mammographic evidence of malignancy. ASSESSMENT: BI-RADS BI-RADS 1 - Negative RECOMMENDATION: Routine annual mammography screening. 1 year F/U This examination should not preclude the clinical evaluation of a suspicious palpable abnormality. This patient's information was entered into a reminder system with a target due date for their next mammogram.
== END 2023-04-19 09:18 | disposition home or self-care (01) ==
LOC: HO.MAMMO 09:17
PROVIDERS: PCP Nurse Practitioner Primary Care; Visit Provider Nurse Practitioner Primary Care
DX: Z12.31 Encounter for screening mammogram for malignant neoplasm of breast (principal)
CPT/HCPCS: 77063; 77067

== ENCOUNTER → 2023-04-19 09:45 | Outpatient (BNV) | payer MEDICAID, SELFPAY | PROVIDERS: PCP Nurse Practitioner Primary Care; Visit Provider Radiology Diagnostic Radiology | DX: Z12.31 Encounter for screening mammogram for malignant neoplasm of breast (principal) | CPT/HCPCS: 77063; 77067 ==

== ENCOUNTER 2023-06-27 08:23 | Outpatient (REF) | payer MEDICAID, SELFPAY ==
--- NOTE | ~2023-06-27 | XR_ITS ---
EXAMINATION: XR lumbar spine 2-3V, XR hip LT min 2V, XR hip RT 1V CLINICAL INFORMATION: Reason for Exam PAIN COMPARISON: None TECHNIQUE: 3 views of the lumbar spine. 2 views of each hip FINDINGS: There are 6 nonrib-bearing lumbar-type vertebral bodies with lumbarization of S1 and a rudimentary S1-S2 disc space. The last well-formed disc space will be referred to as L5-S1. Vertebral body heights are maintained. Alignment is maintained. Loss of disc space height with endplate sclerosis and irregularity at L2-L3 and a lesser extent T11-T12 with disc osteophyte complexes. Paravertebral soft tissues are unremarkable. Hip and sacroiliac joint spaces are maintained. No hip fracture or dislocation. Soft tissues of the pelvis are unremarkable. Moderate changes of the pubic symphysis with subchondral sclerosis and osteophytes. XR/XR lumbar spine 2-3V IMPRESSION: 1. There are 6 nonrib-bearing lumbar-type vertebral bodies with lumbarization of S1 and a rudimentary S1-S2 disc space. The last well-formed disc space will be referred to as L5-S1. If intervention is being considered recommend total spine radiographs to ensure accurate numbering. 2. Moderate degenerative changes of the lumbar spine at L2-L3 and T11-T12 with disc osteophyte complexes. 3. Moderate degenerative changes of the pubic symphysis. Hip joint spaces are maintained.
--- NOTE | ~2023-06-27 | XR_ITS ---
EXAMINATION: XR lumbar spine 2-3V, XR hip LT min 2V, XR hip RT 1V CLINICAL INFORMATION: Reason for Exam PAIN COMPARISON: None TECHNIQUE: 3 views of the lumbar spine. 2 views of each hip FINDINGS: There are 6 nonrib-bearing lumbar-type vertebral bodies with lumbarization of S1 and a rudimentary S1-S2 disc space. The last well-formed disc space will be referred to as L5-S1. Vertebral body heights are maintained. Alignment is maintained. Loss of disc space height with endplate sclerosis and irregularity at L2-L3 and a lesser extent T11-T12 with disc osteophyte complexes. Paravertebral soft tissues are unremarkable. Hip and sacroiliac joint spaces are maintained. No hip fracture or dislocation. Soft tissues of the pelvis are unremarkable. Moderate changes of the pubic symphysis with subchondral sclerosis and osteophytes. XR/XR hip LT min 2V IMPRESSION: 1. There are 6 nonrib-bearing lumbar-type vertebral bodies with lumbarization of S1 and a rudimentary S1-S2 disc space. The last well-formed disc space will be referred to as L5-S1. If intervention is being considered recommend total spine radiographs to ensure accurate numbering. 2. Moderate degenerative changes of the lumbar spine at L2-L3 and T11-T12 with disc osteophyte complexes. 3. Moderate degenerative changes of the pubic symphysis. Hip joint spaces are maintained.
--- NOTE | ~2023-06-27 | XR_ITS ---
EXAMINATION: XR lumbar spine 2-3V, XR hip LT min 2V, XR hip RT 1V CLINICAL INFORMATION: Reason for Exam PAIN COMPARISON: None TECHNIQUE: 3 views of the lumbar spine. 2 views of each hip FINDINGS: There are 6 nonrib-bearing lumbar-type vertebral bodies with lumbarization of S1 and a rudimentary S1-S2 disc space. The last well-formed disc space will be referred to as L5-S1. Vertebral body heights are maintained. Alignment is maintained. Loss of disc space height with endplate sclerosis and irregularity at L2-L3 and a lesser extent T11-T12 with disc osteophyte complexes. Paravertebral soft tissues are unremarkable. Hip and sacroiliac joint spaces are maintained. No hip fracture or dislocation. Soft tissues of the pelvis are unremarkable. Moderate changes of the pubic symphysis with subchondral sclerosis and osteophytes. XR/XR hip RT 1V IMPRESSION: 1. There are 6 nonrib-bearing lumbar-type vertebral bodies with lumbarization of S1 and a rudimentary S1-S2 disc space. The last well-formed disc space will be referred to as L5-S1. If intervention is being considered recommend total spine radiographs to ensure accurate numbering. 2. Moderate degenerative changes of the lumbar spine at L2-L3 and T11-T12 with disc osteophyte complexes. 3. Moderate degenerative changes of the pubic symphysis. Hip joint spaces are maintained.
[2023-06-27 12:29] LABS: Anion Gap 14 (12-20); Blood Urea Nitrogen 14 mg/dL (9-16); Calcium 8.9 mg/dL (8.4-10.2); Carbon Dioxide 23 mmol/L (22-29); Chloride 104 mmol/L (96-108); Estimated Glomerular Filt Rate > 60; Glucose Random 85 mg/dL (60-115); Magnesium 1.9 mg/dL (1.6-2.6); Potassium 3.9 mmol/L (3.3-5.1); Sodium 137 mmol/L (135-145)
[2023-06-27 12:49] LABS: TSH reflex Free T4 0.47 uIU/mL (0.32-4.0)
== END 2023-06-27 08:24 | disposition home or self-care (01) ==
LOC: HO.HHCL 08:23
PROVIDERS: Visit Provider Nurse Practitioner Primary Care
DX: M54.50 Low back pain, unspecified (principal); M25.551 Pain in right hip; M25.552 Pain in left hip; E03.9 Hypothyroidism, unspecified; R25.2 Cramp and spasm
CPT/HCPCS: 36415; 72100; 73501; 73502; 80048; 83735; 84443

== ENCOUNTER 2023-09-06 08:51 | Outpatient (REF) | payer MEDICAID, SELFPAY ==
[2023-09-06 11:57] LABS: HBc Num1 0.12 S/CO (0.00-0.79); Hepatitis B Core Antibody Nonreactive (Nonreactive)
== END 2023-09-06 08:52 | disposition home or self-care (01) ==
LOC: HO.HHCL 08:51
PROVIDERS: Visit Provider Nurse Practitioner Primary Care
DX: Z11.59 Encounter for screening for other viral diseases (principal)
CPT/HCPCS: 36415; 86704

== ENCOUNTER 2023-09-09 08:28 | Outpatient (REF) | payer MEDICAID, SELFPAY ==
[2023-09-09 12:11] LABS: HBS Num1 > 1000.00 mIU/mL (0-7.99); HBsAGNum1 0.29 S/CO (0.00-0.99); Hepatitis B Surface Antigen Negative (Negative); ~Hepatitis B Surface Antibody REACTIVE (Nonreactive)
== END 2023-09-09 08:29 | disposition home or self-care (01) ==
LOC: HO.HHCL 08:28
PROVIDERS: Visit Provider Nurse Practitioner Primary Care
DX: Z00.00 Encounter for general adult medical examination without abnormal findings (principal)
CPT/HCPCS: 36415; 86706; 87340

== ENCOUNTER 2023-09-14 09:26 | Outpatient (REF) | payer MEDICAID, SELFPAY ==
[2023-09-14 11:56] LABS: Estimated Average Glucose 88 mg/dL; Hemoglobin A1c % 4.7 % (<6.0)
[2023-09-14 12:03] LABS: Alanine Aminotransferase 13 U/L (0-31); Albumin Level 3.9 g/dL (3.5-5.0); Alkaline Phosphatase 58 U/L (39-117); Aspartate Amino Transferase 15 U/L (5-31); Bilirubin Direct 0.2 mg/dL (0.0-0.5); Bilirubin Total 0.4 mg/dL (0.0-1.0); Cholesterol 232 mg/dL (<200); HDL Cholesterol 77 mg/dL (>40); LDL Cholesterol Calculated 136 mg/dL (<100); Total Protein 7.5 g/dL (6.5-8.0); Triglycerides 98 mg/dL (<150)
[2023-09-14 12:26] LABS: HIV AB/AG Nonreactive (Nonreactive); HIV Num 1 0.05 S/CO (0.00-0.99)
[2023-09-14 13:43] LABS: CT PCR NOT DETECTED (Not Detect.); NG PCR NOT DETECTED (Not Detect.)
[2023-09-15 19:48] LABS: HCV Log PCR <1.18 NOT DETECTED Log IU/mL (NOT DETECTED); HepC Viral Load <15 NOT DETECTED IU/mL (NOT DETECTED)
[2023-09-16 13:23] LABS: RPR Rapid Plasma Reagin NON-REACTIVE (NON-REACTIVE)
== END 2023-09-14 09:27 | disposition home or self-care (01) ==
LOC: HO.HHCL 09:26
PROVIDERS: Visit Provider Registered Nurse
DX: Z00.00 Encounter for general adult medical examination without abnormal findings (principal); Z11.3 Encounter for screening for infections with a predominantly sexual mode of transmission; Z11.59 Encounter for screening for other viral diseases; Z13.220 Encounter for screening for lipoid disorders
CPT/HCPCS: 0353U; 36415; 80061; 80076; 83036; 86592; 87389; 87522

== ENCOUNTER → 2023-09-27 09:51 | Outpatient (BNVA) | payer MEDICAID, SELFPAY | PROVIDERS: PCP Nurse Practitioner Primary Care; Visit Provider Physician Assistant Surgical ==

== ENCOUNTER 2023-11-01 08:14 | Outpatient (AMB) | payer MEDICAID, SELFPAY ==
--- NOTE | 2023-11-01 08:35 | MHC.OFFVISWM ---
Intake VS Expanded 11/01/23 08:41 BP 153/73 H Blood Pressure Location Rt brachial Blood Pressure Position Sitting Pulse 69 Pulse Source Pulse Oximeter Temp 97.0 F Temperature Source Tympanic Pulse Oximetry 99 Oxygen Delivery Method Room Air Height 5 ft 2 in Weight 196 lb BMI 35.8 Body Fat % 44.2 Body Fat Mass 86.6 Fat Free Mass 109.4 Visceral Fat Rating 11.0 Body Water % 39.8 Body Water Mass 78.0 Muscle Mass/Score 103.8 Basal Metabolic Rate/Score 1,542 Intake Visit Reasons: (TV) KIER PLEATER BMI 35.0 MWL Spot Facer Required: No Allergies acetaminophen [From Tylenol-Codeine #3] Adverse Reaction (Intermediate, Verified 11/01/23 08:43) DIARRHEA codeine [From Tylenol-Codeine #3] Adverse Reaction (Intermediate, Verified 11/01/23 08:43) DIARRHEA Medication List - Last Reconciled 11/01/23 by MICHELLE Peraza acetaminophen (Tylenol Extra Strength) 500 mg PO Q6H PRN cetirizine 10 mg PO DAILY PRN cholecalciferol (vitamin D3) 25 mcg PO DAILY 30 days cyclobenzaprine 5 mg PO Q8H PRN 5 days famotidine (Pepcid) 20 mg PO BID hydrocortisone 2.5% 1 appl topical QD-TID PRN Levoxyl (levothyroxine) 137 mcg PO DAILY 30 days NS lidocaine 5% (Lidoderm) 1 patch topical DAILY naproxen 500 mg PO HPI HPI Comments History of Present Illness Details Pt is here to start the [facility] medical weight loss program. She heard about our program from her PCP. Her goal is to lose weight and achieve a healthy lifestyle. She reports first being concerned about her weight over the last 2 years, highest weight to date was 210. Current weight is 196 pounds with a BMI of 35.9. She has tried multiple methods of weight loss including fad diets without permanent results. She lives with her friend. 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 She wakes at:?530 am, and goes to bed at?9 pm. Dinner is at 130 pm. Breakfast: 2 eggs w spam and 1/2 arabic muffin w cheese and stephen, coffee (black) AM snack: skip Lunch: soup, w chicken, rice potato, fried chicken, veg PM snack: skip Dinner: chips, candy, donuts After dinner: skip Other snacks: as above Liquids: 32 oz water, 20 oz sprite, no juice Alcohol/marijuana/tobacco intake: 3 etoh per week, no cannabis, no tobacco Exercise: nothing formal, no gym membership, stationary bike at home. GERD score: 4 RON score: 2 ESS score: 6 QOL score: 81 PFSH Medical History Vitamin D deficiency History of Graves' disease Hypothyroidism Surgical History Hx of tubal ligation Hx of total thyroidectomy Family History Father Diabetes mellitus Mother No problems noted. Social History Alcohol intake: current Alcohol intake frequency: a few times a week Patient Tobacco Use Status: Former Tobacco user Quit Date: Over 3 years ago Review of Systems Const All systems reviewed & are unremarkable except as noted in HPI and below Physical Exam Const General: cooperative, healthy appearing and no acute distress Orientation/consciousness: patient oriented x3 HEENT Head: Yes normal to inspection Ears: hearing grossly normal bilaterally General nose exam: Normal external nose present Face and sinus: Yes normal facial exam Eyes General: appearance normal, both eyes and all related structures Resp Effort & Inspection: normal respiratory effort Auscultation: clear to auscultation bilaterally Cardio Rate: regular rate Rhythm: regular rhythm Heart sounds: S1 normal heart sound present and S2 normal heart sound present GI Inspection: Yes normal to inspection, No distended and Yes obesity Palpation (GI): Soft to palpation, nontender and no guarding Auscultation: normal bowel sounds Skin General skin exam: no rashes or lesions noted Neuro General: patient oriented x3 Extrem General: No edema Psych Appearance: grossly normal Mental Status: mental status grossly normal Speech and movement: Normal speech and movement present Affect: normal affect Attitude: cooperative Assessment & Plan Assessment & Plan (1) Obesity (BMI 30-39.9): Code(s): E66.9 - Obesity, unspecified Plan: This is a?43 yo female who will start our MWL program.? Blood work, h pylori , CXR, ECG, Abd US and UGI have been ordered. She is being scheduled for RD and BH initial consultations. She will start SWL classes and watch the first three videos before her next appointment. ? Adequate sleep of 7-8 hours per night discussed, awakening at 530 am and going to bed around 9 pm ? Purchase body composition analyzer scale (Renadeo recommended) and check weight weekly. The best time to do this is first thing in the morning after going to the bathroom. 1. Nutritional counseling: Be sure to careful read the number of scoops per shake Start with 1 Celebrate Rebuild protein shake ([facility] [employer], [employer], [employer]), (2 scoops in 20 oz unsweetened almond milk) at 630am-830am 1 protein bar (Canonicalebrate bars at [facility] [employer], [employer], [employer]) at 930am-1130am. Dinner at 130pm (7 forks of protein and 7 forks of salad/vegetables). Meal to include lean meat (beef, fish, pork, turkey, chicken), cooked vegetables or a salad with olive oil and/or fruits (berries, pears, apples, kiwi). Avoid salt, breads, potatoes, rice, pasta, desserts. Another protein bar at 430pm-630pm. may have fruit during the day if needed Try to drink 64 oz of water daily and avoid soda and juices. ?2. Each shake would be drunk slowly, like coffee in a period of 2 hours. ?3. Cut each bar in 4 pieces and eat each piece in 30 min ?to make each bar last 2 hours. ?4. I emphasized the importance of measuring accurately the food portion and measure it carefully when serving the food on the plate ?5. The meal portions include 7 full-size forks of meat and 7 full-size forks of salad. You always eat the meat portion but you can replace up to half of the forks of salad/vegetables with rice, potatoes or pasta, or a fruit ?if you like. The less you do it the better weight loss will be. ?6. One full-size fork is what can be scooped on the fork without falling aside and not what can be bit with the fork. Use regular forks like those you find in a typical restaurant. ?7.? Please send me weight measurements as soon as possible and then once a week. Always include your diet and exercise plan. Alternatively come weekly at the office for weight checks and send me the measurements. ?8. Exercise counseling: Begin by watching a stretching for beginners video. Start slowly and begin to stretch your muscles. You should do this before and after each exercise session to prevent injury. Please join [employer] gym near your home. Ask the manager hotel or one of the trainers how to use the machines if you are unfamiliar with them. Start elliptical with a resistance of 2. Increase resistance by 1 every 3 min to your most comfortable resistance with a max resistance of 8. Reduce the resistance by 1 every 3 minutes back down to 2 and repeat cycles for 300 calories. Alternatively, start treadmill with a speed of 3.0 and incline of 0, increasing incline by 1 every 3 minutes to the highest comfortable level (max 6 for now) then decrease in the same fashion. Repeat process to a goal of 300 calories. Goal of 2000 calories burned or more weekly. You may also consider use of the stationary bike. The easiest would be to chose the fat-burn or interval training program on the machine and do this until you reach the 300 calorie goal. Alternatively, you can manually adjust the resistance in a similar fashion as mentioned above, (resistance of 2-8 with a goal speed of 12 mph). Tracking calories is essential. 9. Alternatively start walking outside daily, tracking calories with a goal of 300 calories per day, daily. You can download the dian [employer] which can track your time, distance and calories while walking outside. You press start in the dian when you start and then stop when you are finished. 10.? It is important to communicate by text if you are having any problems with the plans 11. Discussed and answered all questions regarding?obtained consent to participate in the [facility]?Registry. 12. Please follow the diet plan exactly, without any change. If you do not like something about the plan or you feel hungry, you need to communicate with me so I can help you revise the plan. You should not change the plan yourself. Text me at [phone] 13. Goal is to lose at least 8 pounds in the first month Patient is morbidly obese and is not considered stable at this time.?I spent a total of 70 minutes reviewing/updating records, examining the patient and counseling the patient on weight management as detailed above. Coding Level of Care Code New Pt Level 5 (04509) Diagnoses Obesity (BMI 30-39.9) E66.9 Time Spent (min) 70
[2023-11-01 08:41] VITALS: BP 153/73; PULSE 69; TEMP 36.1; O2SAT 99; BMI 35.8
== END 2023-11-01 09:15 | disposition home or self-care (01) ==
PROVIDERS: PCP Nurse Practitioner Primary Care; Visit Provider Physician Assistant Surgical
DX: E66.9 Obesity, unspecified (principal); Z68.35 Body mass index [BMI] 35.0-35.9, adult
CPT/HCPCS: 99205

== ENCOUNTER → 2023-11-01 08:14 | Outpatient (BNVA) | payer MEDICAID, SELFPAY | PROVIDERS: PCP Nurse Practitioner Primary Care; Visit Provider Physician Assistant Surgical | DX: E66.9 Obesity, unspecified (principal); Z68.35 Body mass index [BMI] 35.0-35.9, adult | CPT/HCPCS: 99212 ==

== ENCOUNTER 2023-11-29 09:50 | Outpatient (AMB) | payer MEDICAID, SELFPAY ==
--- NOTE | 2023-11-29 09:43 | A.OFFVIS_ITS ---
Intake Intake Visit Reasons: (TV) Initial Nutrition MWL Allergies acetaminophen [From Tylenol-Codeine #3] Adverse Reaction (Intermediate, Verified 11/01/23 08:43) DIARRHEA codeine [From Tylenol-Codeine #3] Adverse Reaction (Intermediate, Verified 11/01/23 08:43) DIARRHEA HPI Nutrition Presentation Details Medical weight loss No weight for todays visit Reason for consult elevated BMI Diet Assmnt Details Pt states she is doing well and has no questions today, she is happy with the plan pt reports using [employer] and bars - provided nutrition plan from Isak MARTINEZ a month ago. Dinner meals : usually salads with chicken and really likes this - is open to recipe ideas , email sent. Exercise: none, reports getting a gym membership is not possible right now.receptive to home exercise, provided resources Dietary counseling reduction Who buys your food self Who prepares/cooks your food self Meal frequency regular: breakfast (2 eggs w spam and 1/2 dutch muffin w cheese and stephen, coffee (black)), dinner and snacks (donuts, packaged snacks ) and never: lunch Lifestyle Food frequency Grains/pasta/breads/cereal (carbs): daily, Meats/poultry/fish (protein): daily, Meat substitutes/nuts/seeds/legumes: daily, Processed foods/meats: daily, Water: daily, Soda: daily and Coffee: daily Diagnosis Nutrition problem #1 overweight/obesity As related to (etiology) #1 excess energy intake and physical inactivity As evidenced by (sign/symptom) #1 high BMI Monitoring/Goals Nutrition problem monitoring total energy intake, level of knowledge/skill, total PRO intake and weight Outcome progress progressing Learning/Education Readiness to learn good Stages of change action Educational materials provided Yes Most Recent Diabetes Results: Cholesterol 232 mg/dL (<200) H 09/14/23 HDL Cholesterol 77 mg/dL (>40) 09/14/23 Triglycerides 98 mg/dL (<150) 09/14/23 Creatinine 0.73 mg/dL (0.5-1.4) 06/27/23 Blood Urea Nitrogen 14 mg/dL (9-16) 06/27/23 Sodium 137 mmol/L (135-145) 06/27/23 Potassium 3.9 mmol/L (3.3-5.1) 06/27/23 Chloride 104 mmol/L (96-108) 06/27/23 Carbon Dioxide 23 mmol/L (22-29) 06/27/23 Calcium 8.9 mg/dL (8.4-10.2) 06/27/23 AST 15 U/L (5-31) 09/14/23 ALT 13 U/L (0-31) 09/14/23 Total Protein 7.5 g/dL (6.5-8.0) 09/14/23 Albumin 3.9 g/dL (3.5-5.0) 09/14/23 [facility] Medical History Vitamin D deficiency History of Graves' disease Hypothyroidism Surgical History Hx of tubal ligation Hx of total thyroidectomy Family History Father Diabetes mellitus Mother No problems noted. Social History Alcohol intake: current Alcohol intake frequency: a few times a week Patient Tobacco Use Status: Former Tobacco user Quit Date: Over 3 years ago Assessment & Plan Assessment & Plan (1) Obesity (BMI 30-39.9): Code(s): E66.9 - Obesity, unspecified Plan pt to continue f/u with Isak MARTINEZ as part of MWL program Telehealth Telehealth Location of provider rendering services: practice address Location of patient: address on file Patient Identification confirmed using: Name, : Yes Telehealth method: voice only Patient verbally consented to treatment: Yes Patient verbally consented to billing insurance company: Yes Patient informed of any privacy concerns related to visit: Yes Minutes spent on Phone/Video with Pt.: 15 Coding Level of Care Code Nutr Indiv Intake (85288) Diagnoses Obesity (BMI 30-39.9) E66.9 Time Spent (min) 15
== END 2023-11-29 10:05 | disposition home or self-care (01) ==
LOC: HO.HBS 09:50
PROVIDERS: PCP Nurse Practitioner Primary Care; Visit Provider Dietitian, Registered
DX: E66.9 Obesity, unspecified (principal)

== ENCOUNTER → 2023-11-29 09:50 | Outpatient (BNVA) | payer MEDICAID, SELFPAY | PROVIDERS: PCP Nurse Practitioner Primary Care; Visit Provider Dietitian, Registered | DX: E66.9 Obesity, unspecified (principal) | CPT/HCPCS: 97802 ==

== ENCOUNTER 2023-12-07 08:49 | Outpatient (AMB) | payer MEDICAID, SELFPAY ==
--- NOTE | 2023-12-07 09:07 | MHC.OFFVIS ---
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 How long ? 8 months with pain numbness and tingling? only feel presion and pain any injury? no Any previous treatment? no Who referred her to us? [facility] (PCP :Joyce) Environmental Control Administrator Required: No Information Interpreted: non-clinical & clinical Accompanied by: Self / Same As Patient Allergies acetaminophen [From Tylenol-Codeine #3] Adverse Reaction (Intermediate, Verified 12/07/23 09:12) DIARRHEA codeine [From Tylenol-Codeine #3] Adverse Reaction (Intermediate, Verified 12/07/23 09:12) DIARRHEA Medication List - Last Reconciled 12/07/23 by Elinor Lemus MD acetaminophen (Tylenol Extra Strength) 500 mg PO Q6H PRN cetirizine 10 mg PO DAILY PRN cholecalciferol (vitamin D3) 25 mcg PO DAILY 30 days cyclobenzaprine 5 mg PO Q8H PRN 5 days famotidine (Pepcid) 20 mg PO BID hydrocortisone 2.5% 1 appl topical QD-TID PRN Levoxyl (levothyroxine) 137 mcg PO DAILY 30 days NS lidocaine 5% (Lidoderm) 1 patch topical DAILY naproxen 500 mg PO HPI HPI Comments History of Present Illness Details 8 months of back/hip pain. Denies inciting injuries. 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 Worse with sitting, feels compressing. Nowadays even neck bothers her, sometimes feels pressure that goes up from lower back. Thinks lower back is the source. Also goes to bilateral hip and sometimes thighs numbness/cramping. Cramps worse depending on sitting position. No feet numbness. No bladder/bowel changes. No history of DM. Treatment done so far: NSAIDs tried exercise at home but worsened cramps walks during work PFSH Medical History Vitamin D deficiency History of Graves' disease Hypothyroidism Surgical History Hx of tubal ligation Hx of total thyroidectomy Family History Father Diabetes mellitus Mother No problems noted. Social History Alcohol intake: current Alcohol intake frequency: a few times a week Patient Tobacco Use Status: Former Tobacco user Quit Date: Over 3 years ago Review of Systems Const All systems reviewed & are unremarkable except as noted in HPI and below Physical Exam Vital Signs: BMI result Body Mass Index 35.8 Constitutional: Patient appears to be in no acute distress, well nourished and well developed. Patient was appropriately conversant and oriented. Good historian. MSK: No specific abnormalities found on inspection of the spine and all extremities. Tender right SI joint and bilateral GT. Tight on upper trapezius. Cervical range of motion full. Negative Spurling sign. Lumbar ROM was full. Bilateral hip, knee and ankle ROM WNL. No ligamentous laxity or crepitance. No increased effusion. Straight-leg raising test negative. FABERE test positive SI pain bilateral. Strength is 5/5 in all muscle groups tested. No increased tone noted. Neurological: Neurologic examination of the upper and lower extremities was nonfocal with intact sensation, muscle stretch reflexes and without focal motor deficits . Dos Santos?s negative bilaterally. Babinski was down going bilaterally. Clonus was negative. Gait is non-antalgic without loss of balance. Results Reviewed Results Reviewed: I independently reviewed the results of the following: Images reviewed with patient, preserved hip joint spaces bilateral. Ordering Physician: NIA CAIN NP Date of Service: 06/27/23 Procedure(s): XR hip RT 1V Accession Number(s): [id number] cc: NIA CAIN NP~ EXAMINATION: XR lumbar spine 2-3V, XR hip LT min 2V, XR hip RT 1V CLINICAL INFORMATION: Reason for Exam PAIN COMPARISON: None TECHNIQUE: 3 views of the lumbar spine. 2 views of each hip FINDINGS: There are 6 nonrib-bearing lumbar-type vertebral bodies with lumbarization of S1 and a rudimentary S1-S2 disc space. The last well-formed disc space will be referred to as L5-S1. Vertebral body heights are maintained. Alignment is maintained. Loss of disc space height with endplate sclerosis and irregularity at L2-L3 and a lesser extent T11-T12 with disc osteophyte complexes. Paravertebral soft tissues are unremarkable. Hip and sacroiliac joint spaces are maintained. No hip fracture or dislocation. Soft tissues of the pelvis are unremarkable. Moderate changes of the pubic symphysis with subchondral sclerosis and osteophytes. XR/XR hip RT 1V IMPRESSION: 1. There are 6 nonrib-bearing lumbar-type vertebral bodies with lumbarization of S1 and a rudimentary S1-S2 disc space. The last well-formed disc space will be referred to as L5-S1. If intervention is being considered recommend total spine radiographs to ensure accurate numbering. 2. Moderate degenerative changes of the lumbar spine at L2-L3 and T11-T12 with disc osteophyte complexes. 3. Moderate degenerative changes of the pubic symphysis. Hip joint spaces are maintained. Assessment & Plan Assessment & Plan (1) Sacroiliac joint dysfunction of right side: Code(s): M53.3 - Sacrococcygeal disorders, not elsewhere classified (2) Trochanteric bursitis of both hips: Code(s): M70.61 - Trochanteric bursitis, right hip; M70.62 - Trochanteric bursitis, left hip (3) Iliotibial band syndrome: Code(s): M76.30 - Iliotibial band syndrome, unspecified leg Qualifiers: Laterality: right Qualified Code(s): M76.31 - Iliotibial band syndrome, right leg (4) Myofascial pain: Code(s): M79.18 - Myalgia, other site Plan Presents with several pain generators, without neurologic findings. Pain coming from right SI joint and bilateral trochanteric bursitis. Tight upper trapezius as well. Offered to do injection today but she defers. We agreed on doing physical therapy. Work on myofascial release and pelvic stabilization. If not improved after PT, she will consider injections. Assessment and plan discussed with patient, and patient was agreeable. All questions were answered thoroughly. Follow-up 6 weeks. Elinor Lemus MD, DEEPTHI Board Certified, [place] Board [employer] and Rehabilitation (ABPMR) Board Certified, [place] Board of Electrodiagnostic Medicine (ABEM) Orders: Orders PT Evaluation and Treatment Today M53.3 - Sacrococcygeal disorders, not elsewhere classified, M70.61 - Trochanteric bursitis, right hip, M70.62 - Trochanteric bursitis, left hip, M76.30 - Iliotibial band syndrome, unspecified leg, M79.18 - Myalgia, other site Coding Level of Care Code New Pt Level 4 (85735) Diagnoses Sacroiliac joint dysfunction of right side M53.3 Trochanteric bursitis of both hips M70.61; M70.62 Iliotibial band syndrome of right side M76.31 Laterality: right Myofascial pain M79.18
[2023-12-07 09:09] VITALS: BMI 35.8
== END 2023-12-07 09:46 | disposition home or self-care (01) ==
PROVIDERS: PCP Nurse Practitioner Primary Care; Visit Provider Physical Medicine & Rehabilitation
DX: M53.3 Sacrococcygeal disorders, not elsewhere classified (principal); M70.61 Trochanteric bursitis, right hip; M70.62 Trochanteric bursitis, left hip; M76.31 Iliotibial band syndrome, right leg; M79.18 Myalgia, other site
CPT/HCPCS: 99204

== ENCOUNTER → 2023-12-07 08:49 | Outpatient (BNVA) | payer MEDICAID, SELFPAY | PROVIDERS: PCP Nurse Practitioner Primary Care; Visit Provider Physical Medicine & Rehabilitation | DX: M53.3 Sacrococcygeal disorders, not elsewhere classified (principal); M70.61 Trochanteric bursitis, right hip; M70.62 Trochanteric bursitis, left hip; M76.31 Iliotibial band syndrome, right leg; M79.18 Myalgia, other site | CPT/HCPCS: 99202 ==

== ENCOUNTER 2023-12-21 12:15 | Outpatient (REF) | payer MEDICAID, SELFPAY ==
[2023-12-23 17:29] LABS: C. trachomatis RNA TMA NOT DETECTED (NOT DETECTED); Candida glabrata RNA NOT DETECTED (NOT DETECTED); Candida species RNA NOT DETECTED (NOT DETECTED); N. gonorrhoeae RNA TMA NOT DETECTED (NOT DETECTED); Trichomonas vaginalis RNA NOT DETECTED (NOT DETECTED)
== END 2023-12-21 12:16 | disposition home or self-care (01) ==
LOC: HO.HHCLNP 12:15
PROVIDERS: Visit Provider Emergency Medicine
DX: R30.9 Painful micturition, unspecified (principal); Z11.3 Encounter for screening for infections with a predominantly sexual mode of transmission
CPT/HCPCS: 36415; 81513; 87086; 87088; 87186; 87481; 87491; 87591; 87661

== ENCOUNTER 2024-01-03 08:29 | Outpatient (AMB) | payer MEDICAID, SELFPAY ==
--- NOTE | 2024-01-03 08:42 | MHC.NURWM ---
Intake Intake Visit Reasons: (OV) F/U MWL Allergies acetaminophen [From Tylenol-Codeine #3] Adverse Reaction (Intermediate, Verified 12/07/23 09:12) DIARRHEA codeine [From Tylenol-Codeine #3] Adverse Reaction (Intermediate, Verified 12/07/23 09:12) DIARRHEA Coding
[2024-01-03 08:56] VITALS: BP 138/68; PULSE 64; TEMP 36.1; O2SAT 97; BMI 33.8
--- NOTE | 2024-01-03 08:56 | A.OFFVIS_ITS ---
Intake VS Expanded 01/03/24 08:56 BP 138/68 Blood Pressure Location Rt brachial Blood Pressure Position Sitting Pulse 64 Pulse Source Pulse Oximeter Temp 97.0 F Temperature Source Temporal Artery Scan Pulse Oximetry 97 Oxygen Delivery Method Room Air Height 5 ft 2 in Weight 184 lb 9.6 oz BMI 33.8 Body Fat % 43.1 Body Fat Mass 79.6 Fat Free Mass 105.0 Visceral Fat Rating 10.0 Body Water % 40.6 Body Water Mass 75.0 Muscle Mass/Score 99.6 Basal Metabolic Rate/Score 1,477 Intake Visit Reasons: (OV) F/U MWL Allergies acetaminophen [From Tylenol-Codeine #3] Adverse Reaction (Intermediate, Verified 01/03/24 08:59) DIARRHEA codeine [From Tylenol-Codeine #3] Adverse Reaction (Intermediate, Verified 01/03/24 08:59) DIARRHEA HPI HPI Comments History of Present Illness Details Patient is a pleasant 43-year-old female who returns to the office today in follow-up for medical weight loss. She was originally seen on 11/01/2023 with a weight of 196 lb and a BMI of 35.8. Today's weight is 184.6 with a BMI of 33.8. She has lost 11.4 lb or 5.8% total body weight loss. She feels things are going ok. She states the celebrate shake is difficult for her to purchase due to financial insecurity and she wants to use her SNAP benefit. SNAP covers Natures Promise 17 gm she also wants to use the [employer] protein bar 7 gm protein meal plan: 1 Celebrate Rebuild protein shake ([facility] [employer], [employer], [employer]), (2 scoops in 20 oz unsweetened almond milk) at 630am-830am 1 protein bar (Celebrate bars at [facility] [employer], [employer], [employer]) at 930am-1130am. Dinner at 130pm (7 forks of protein and 7 forks of salad/vegetables). Another protein bar at 430pm-630pm. may have fruit during the day if needed Drinking 48 oz water, no soda or juice. Exercise plan: going to go to today, has not started. [facility] Medical History Vitamin D deficiency History of Graves' disease Hypothyroidism Surgical History Hx of tubal ligation Hx of total thyroidectomy Family History Father Diabetes mellitus Mother No problems noted. Social History Alcohol intake: current Alcohol intake frequency: a few times a week Patient Tobacco Use Status: Former Tobacco user Quit Date: Over 3 years ago Review of Systems Const All systems reviewed & are unremarkable except as noted in HPI and below Physical Exam Const General: healthy appearing and no acute distress Resp Effort & Inspection: normal respiratory effort Auscultation: clear to auscultation bilaterally Cardio Rate: regular rate Rhythm: regular rhythm GI Auscultation: normal bowel sounds Extrem General: Yes normal to inspection Assessment & Plan Assessment & Plan (1) Obesity (BMI 30-39.9): Code(s): E66.9 - Obesity, unspecified Plan: Change meal plan per patient's request to utilize her sn AP benefits, natures promise protein shake(20 gm) and [place] protein bars(7 gm). Shake 1 scoop in 12 oz almond milk at 630-830am Bar 930-11 30am Meal 7 forks protein and 7 forks vegetables at 1pm Shake half scoop in 8 oz almond milk at 04:32 630pm. Exercise is critical Coding Level of Care Code Est Pt Level 3 (16337) Diagnoses Obesity (BMI 30-39.9) E66.9
== END 2024-01-03 09:14 | disposition home or self-care (01) ==
PROVIDERS: PCP Nurse Practitioner Primary Care; Visit Provider Physician Assistant Surgical
DX: E66.9 Obesity, unspecified (principal)
CPT/HCPCS: 99213

== ENCOUNTER → 2024-01-03 08:29 | Outpatient (BNVA) | payer MEDICAID, SELFPAY | PROVIDERS: PCP Nurse Practitioner Primary Care; Visit Provider Physician Assistant Surgical | DX: E66.9 Obesity, unspecified (principal); Z68.33 Body mass index [BMI] 33.0-33.9, adult | CPT/HCPCS: 99212 ==

== ENCOUNTER 2024-01-16 17:41 | Outpatient (REF) | payer MEDICAID, SELFPAY ==
[2024-01-17 15:49] LABS: C. trachomatis RNA TMA NOT DETECTED (NOT DETECTED); Candida glabrata RNA NOT DETECTED (NOT DETECTED); Candida species RNA NOT DETECTED (NOT DETECTED); N. gonorrhoeae RNA TMA NOT DETECTED (NOT DETECTED); Trichomonas vaginalis RNA NOT DETECTED (NOT DETECTED)
== END 2024-01-16 17:42 | disposition home or self-care (01) ==
LOC: HO.HHCLNP 17:41
PROVIDERS: Visit Provider Nurse Practitioner Family
DX: R30.0 Dysuria (principal); N76.0 Acute vaginitis
CPT/HCPCS: 36415; 81513; 87086; 87481; 87491; 87591; 87661

== ENCOUNTER 2024-02-07 08:41 | Outpatient (AMB) | payer MEDICAID, SELFPAY ==
--- NOTE | 2024-02-07 08:51 | A.OFFVIS_ITS ---
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 Matrix Required: No Allergies acetaminophen [From Tylenol-Codeine #3] Adverse Reaction (Intermediate, Verified 02/07/24 08:56) DIARRHEA codeine [From Tylenol-Codeine #3] Adverse Reaction (Intermediate, Verified 02/07/24 08:56) DIARRHEA Medication List - Last Reconciled 02/07/24 by MICHELLE Peraza acetaminophen (Tylenol Extra Strength) 500 mg PO Q6H PRN cetirizine 10 mg PO DAILY PRN cholecalciferol (vitamin D3) 25 mcg PO DAILY 30 days cyclobenzaprine 5 mg PO Q8H PRN 5 days famotidine (Pepcid) 20 mg PO BID hydrocortisone 2.5% 1 appl topical QD-TID PRN Levoxyl (levothyroxine) 137 mcg PO DAILY 30 days NS lidocaine 5% (Lidoderm) 1 patch topical DAILY naproxen 500 mg PO HPI Comments Details: Patient is a pleasant 43-year-old female who returns to the office today in follow-up for medical weight loss. She was originally seen on 11/01/2023 with a weight of 196 lb and a BMI of 35.8. Today's weight is 176.4 with a BMI of 32.3. She has lost 19.6 lb or 10% total body weight loss. She feels things are going ok. She states the celebrate shake is difficult for her to purchase due to financial insecurity and she wants to use her SNAP benefit. SNAP covers [employer] Promise 17 gm she also wants to use the Rumsey protein bar 7 gm protein meal plan: per patient's request to utilize her sn AP benefits, [employer] promise protein shake(20 gm) and Rumsey protein bars(7 gm). Shake 1 scoop in 12 oz almond milk at 630-830am Bar 930-11 30am Meal 7 forks protein and 7 forks vegetables at 1pm Shake half scoop in 8 oz almond milk at 04:30- 630pm. Drinkin oz water daily Exercise: goes to gym w aunt but only went twice PF. treadmill 250 calories. PFSH Medical History Vitamin D deficiency History of Graves' disease Hypothyroidism Surgical History Hx of tubal ligation Hx of total thyroidectomy Family History Father Diabetes mellitus Mother No problems noted. Social History Alcohol intake: current Alcohol intake frequency: a few times a week Patient Tobacco Use Status: Former Tobacco user Quit Date: Over 3 years ago Physical Exam Const General: healthy appearing and no acute distress Resp Effort & Inspection: normal respiratory effort Auscultation: clear to auscultation bilaterally Cardio Rate: regular rate Rhythm: regular rhythm GI Auscultation: normal bowel sounds Extrem General: Yes normal to inspection Assessment & Plan Assessment & Plan (1) Obesity (BMI 30-39.9): Code(s): E66.9 - Obesity, unspecified Category: Medical Plan: Patient has done very well and lost approximately 10% total body weight loss in the last 3 months. She wishes for 1 more appointment. We will continue her cu rrent meal plan. She was given a letter for discount to the [facility] given her financial constraints. She was encouraged to text weekly with any questions or concerns.
[2024-02-07 09:00] VITALS: BP 133/79; PULSE 62; TEMP 36.2; O2SAT 100; BMI 32.3
== END 2024-02-07 09:22 | disposition home or self-care (01) ==
PROVIDERS: PCP Nurse Practitioner Primary Care; Visit Provider Physician Assistant Surgical
DX: E66.9 Obesity, unspecified (principal)
CPT/HCPCS: 99213

== ENCOUNTER → 2024-02-07 08:41 | Outpatient (BNVA) | payer MEDICAID, SELFPAY | PROVIDERS: PCP Nurse Practitioner Primary Care; Visit Provider Physician Assistant Surgical | DX: E66.9 Obesity, unspecified (principal); Z68.32 Body mass index [BMI] 32.0-32.9, adult | CPT/HCPCS: 99212 ==

== ENCOUNTER 2024-02-07 10:00 | Outpatient (RCR) | payer MEDICAID, SELFPAY ==
--- NOTE | 2024-01-10 09:52 | MHC.PT.EP ---
[facility] [place] Office [place] Office [place] Office [address] Salvador Andres [address] [phone] F: [phone] F: [phone] F: [phone] F: [phone] Physical Therapy Plan of Care Date of Evaluation: 01/10/24 Date of Surgery: N/A Diagnosis: right, left trochanteric bursitis (RL) Assessment: pt is a 43 y/o female presenting to physical therapy w/ referring diagnosis of left, right trochanteric bursitis. Impairments include pain, decreased range of motion, decreased strength, impaired functional mobility, impaired postural awareness, and altered ambulation mechanics. pt is a good candidate for skilled PT due to age, potential remediation of impairments, typical disease/condition progression and prognosis, comorbidities, and motivation. pt would benefit from skilled PT intervention to provide a tailored strengthening and stretching exercise program, functional training, gait training, postural re-training, neuromuscular re-education, modalities as needed for pain, equipment safety demonstration. Frequency and Duration: The patient will be seen 2x/wk for 4 wks Short Term Goals: pt will be I w/ HEP to promote self-management of condition. pt will demo proper sitting posture w/ lumbar roll to promote neutral spine w/ seated ADLs. 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 pt will demo proper lifting mechanics of 40# x5 reps to promote return to lifting. Treatment Plan: Modalities to reduce pain, spasms and effusion. Manual therapy to restore motion and function. Therapeutic exercise to improve strength and flexibility. Neuromuscular re-education for posture and balance. Therapeutic activities to return to functional activities of daily living. Electronically signed by: Elicia Comer PT, DPT Please sign and return to therapist. Thank you for your referral.
--- NOTE | 2024-02-07 10:17 | MHC.PT.DC ---
[facility] [place] Office [place] Office [place] Office [address] Salvador Andres [address] [phone] F: [phone] F: [phone] F: [phone] F: [phone] Physical Therapy Discharge Report Diagnosis: right, left trochanteric bursitis (RL) Date of Surgery: N/A Date of Evaluation: 01/10/24 Date of Discharge: 02/07/24 Treatments to Date: 6 Cancellations to Date: 2 No Shows to Date: 0 Discharge Status: Improved Function Independent with HEP Discharge Summary: The patient has been reporting little to no hip or back pain. She was educated on neutral spine and posture. She is independent with her home exercise program and is discharged from this plan of care. Electronically signed by: Elicia Comer PT, DPT Please sign and return to therapist. Thank you for your referral.
== END 2024-02-07 10:18 | disposition home or self-care (01) ==
LOC: HO.PT 10:00
PROVIDERS: PCP Nurse Practitioner Primary Care; Visit Provider Physical Medicine & Rehabilitation
DX: M79.18 Myalgia, other site (principal); M70.61 Trochanteric bursitis, right hip; M70.62 Trochanteric bursitis, left hip
CPT/HCPCS: 97110; 97112; 97140; 97162

== ENCOUNTER 2024-02-08 10:58 | Outpatient (AMB) | payer MEDICAID, SELFPAY ==
--- NOTE | 2024-02-08 11:13 | A.OFFVIS_ITS ---
Intake Visit Reasons: OV - B/L hip pain Intake Note: Annalise is 43 year old female who presents today for a follow up of her bilateral hip and right shoulder pain. Patient reports that she has been working with physical therapy, She has one session left. She does feel that she is improving. No concerns at this time. She reports that she is having bilateral neck pain radiating to bilateral traps. Denies numbness and tingling . Allergies acetaminophen [From Tylenol-Codeine #3] Adverse Reaction (Intermediate, Verified 02/08/24 11:16) DIARRHEA codeine [From Tylenol-Codeine #3] Adverse Reaction (Intermediate, Verified 02/08/24 11:16) DIARRHEA Medication List - Last Reconciled 02/08/24 by Elinor Lemus MD acetaminophen (Tylenol Extra Strength) 500 mg PO Q6H PRN cetirizine 10 mg PO DAILY PRN cholecalciferol (vitamin D3) 25 mcg PO DAILY 30 days cyclobenzaprine 5 mg PO Q8H PRN 5 days famotidine (Pepcid) 20 mg PO BID hydrocortisone 2.5% 1 appl topical QD-TID PRN Levoxyl (levothyroxine) 137 mcg PO DAILY 30 days NS lidocaine 5% (Lidoderm) 1 patch topical DAILY naproxen 500 mg PO HPI Comments Details: 8 months of back/hip pain. Denies inciting injuries. 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 Worse with sitting, feels compressing. Nowadays even neck bothers her, sometimes feels pressure that goes up from lower back. Thinks lower back is the source. Also goes to bilateral hip and sometimes thighs numbness/cramping. Cramps worse depending on sitting position. No feet numbness. No bladder/bowel changes. No history of DM. Treatment done so far: NSAIDs tried exercise at home but worsened cramps walks during work Since last time I saw her, her lower back pain has much improved with physical therapy. She has also lost 20 lb. She is under the weight loss program here in [facility]. She is complaining today of upper back/neck pain. This is chronic intermittent, but gradually worsening over the last 6 months. Described as tight. Denies any numbness on her hands except for 1 month of numbness of the right thumb. This is now resolved. Full shoulder range of motion. She had complained about this last year and that x-ray, unfortunately not available for my review. [facility] Medical History Vitamin D deficiency History of Graves' disease Hypothyroidism Surgical History Hx of tubal ligation Hx of total thyroidectomy Family History Father Diabetes mellitus Mother No problems noted. Social History Alcohol intake: current Alcohol intake frequency: a few times a week Patient Tobacco Use Status: Former Tobacco user Quit Date: Over 3 years ago Physical Exam Constitutional: Patient appears to be in no acute distress, well nourished and well developed. Patient was appropriately conversant and oriented. Good historian. MSK: No specific abnormalities found on inspection of the spine and all extremities. No tenderness on SI joint or GT. Tightness on upper trapezius and rhomboids. Cervical range of motion full. Negative Spurling sign. Lumbar ROM was full. Bilateral hip, knee and ankle ROM WNL. No ligamentous laxity or crepitance. No increased effusion. Straight-leg raising test negative. FABERE test negative. Strength is 5/5 in all muscle groups tested. No increased tone noted. Neurological: Neurologic examination of the upper and lower extremities was nonfocal with intact sensation, muscle stretch reflexes and without focal motor deficits . Dos Santos?s negative bilaterally. Babinski was down going bilaterally. Clonus was negative. Gait is non-antalgic without loss of balance. Results Reviewed Results Reviewed: Ordering Physician: NIA CAIN NP Date of Service: 06/27/23 Procedure(s): XR lumbar spine 2-3V Accession Number(s): [id number] cc: NIA CAIN NP~ EXAMINATION: XR lumbar spine 2-3V, XR hip LT min 2V, XR hip RT 1V CLINICAL INFORMATION: Reason for Exam PAIN COMPARISON: None TECHNIQUE: 3 views of the lumbar spine. 2 views of each hip FINDINGS: There are 6 nonrib-bearing lumbar-type vertebral bodies with lumbarization of S1 and a rudimentary S1-S2 disc space. The last well-formed disc space will be referred to as L5-S1. Vertebral body heights are maintained. Alignment is maintained. Loss of disc space height with endplate sclerosis and irregularity at L2-L3 and a lesser extent T11-T12 with disc osteophyte complexes. Paravertebral soft tissues are unremarkable. Hip and sacroiliac joint spaces are maintained. No hip fracture or dislocation. Soft tissues of the pelvis are unremarkable. Moderate changes of the pubic symphysis with subchondral sclerosis and osteophytes. XR/XR lumbar spine 2-3V IMPRESSION: 1. There are 6 nonrib-bearing lumbar-type vertebral bodies with lumbarization of S1 and a rudimentary S1-S2 disc space. The last well-formed disc space will be referred to as L5-S1. If intervention is being considered recommend total spine radiographs to ensure accurate numbering. 2. Moderate degenerative changes of the lumbar spine at L2-L3 and T11-T12 with disc osteophyte complexes. 3. Moderate degenerative changes of the pubic symphysis. Hip joint spaces are maintained. Assessment & Plan Assessment & Plan (1) Sacroiliac joint dysfunction of right side: Code(s): M53.3 - Sacrococcygeal disorders, not elsewhere classified Category: Medical (2) Myofascial pain: Code(s): M79.18 - Myalgia, other site Category: Medical (3) Neck Pain: Code(s): M54.2 - Cervicalgia Plan Lower back pain is much improved with physical therapy. Encouraged to keep doing exercises at home. Lumbar x-rays did show degenerative changes but no signs of radiculopathy at this time. Upper back/neck pain is most likely myofascial. Possibly has underlying cervical spondylosis as well. No signs of radiculopathy or myelopathy on exam today Since she did very well with physical therapy for lower back, we will refer her for more PT. If does not improve in 2 months, we will consider trigger point injections. Assessment and plan discussed with patient, and patient was agreeable. All questions were answered thoroughly. Follow-up 2 months. Elinor Lemus MD, DEEPTHI Board Certified, [place] Board of Physical Medicine and Rehabilitation (ABPMR) Board Certified, [place] Board of Electrodiagnostic Medicine (ABEM) Orders: Orders PT Evaluation and Treatment Today M54.2 - Cervicalgia, M76.31 - Iliotibial band syndrome, right leg, M79.18 - Myalgia, other site Medications: Discontinued cyclobenzaprine Discontinued Reason: Patient Completed Course 5 mg PO Q8H 5 days PRN 14 tabs 0RF pain (scale score 7-10) Coding Level of Care Code Est Pt Level 4 (64642) Diagnoses Sacroiliac joint dysfunction of right side M53.3 Myofascial pain M79.18 Neck Pain M54.2
== END 2024-02-08 15:43 | disposition home or self-care (01) ==
PROVIDERS: PCP Nurse Practitioner Primary Care; Visit Provider Physical Medicine & Rehabilitation
DX: M53.3 Sacrococcygeal disorders, not elsewhere classified (principal); M79.18 Myalgia, other site; M54.2 Cervicalgia
CPT/HCPCS: 99214

== ENCOUNTER → 2024-02-08 10:58 | Outpatient (BNVA) | payer MEDICAID, SELFPAY | PROVIDERS: PCP Nurse Practitioner Primary Care; Visit Provider Physical Medicine & Rehabilitation | DX: M53.3 Sacrococcygeal disorders, not elsewhere classified (principal); M79.18 Myalgia, other site; M54.2 Cervicalgia | CPT/HCPCS: 99212 ==

== ENCOUNTER 2024-04-12 12:06 | Outpatient (REF) | payer MEDICAID, SELFPAY ==
[2024-04-15 03:04] LABS: TS Negative Control Passed; TS Panel A 1; TS Panel B 1; TS Positive Control Passed; TSpotTB Negative (Negative)
== END 2024-04-12 12:07 | disposition home or self-care (01) ==
LOC: HO.HHCL 12:06
PROVIDERS: Visit Provider Nurse Practitioner Primary Care
DX: Z02.89 Encounter for other administrative examinations (principal)
CPT/HCPCS: 36415; 86481

== ENCOUNTER → 2024-04-24 10:00 | Outpatient (BNV) | payer MEDICAID, SELFPAY | PROVIDERS: PCP Nurse Practitioner Primary Care; Visit Provider Radiology Diagnostic Radiology | DX: Z12.31 Encounter for screening mammogram for malignant neoplasm of breast (principal) | CPT/HCPCS: 77063; 77067 ==

== ENCOUNTER 2024-04-24 10:20 | Outpatient (REF) | payer MEDICAID, SELFPAY | END 2024-04-24 10:21 | disposition home or self-care (01) | LOC: HO.MAMMO 10:20 | PROVIDERS: PCP Nurse Practitioner Primary Care; Visit Provider Nurse Practitioner Primary Care | DX: Z12.31 Encounter for screening mammogram for malignant neoplasm of breast (principal) | CPT/HCPCS: 77063; 77067 ==

== ENCOUNTER 2024-09-18 10:17 | Outpatient (REF) | payer MEDICAID, SELFPAY ==
[2024-09-18 12:04] LABS: Cholesterol 210 mg/dL (<200); HDL Cholesterol 68 mg/dL (>40); LDL Cholesterol Calculated 128 mg/dL (<100); Triglycerides 71 mg/dL (<150)
[2024-09-18 12:19] LABS: TSH reflex Free T4 0.65 uIU/mL (0.32-4.0)
[2024-09-18 18:56] LABS: CT PCR NOT DETECTED (Not Detect.); NG PCR NOT DETECTED (Not Detect.)
[2024-09-20 14:22] LABS: HIV AB/AG Nonreactive (Nonreactive); HIV Num 1 0.05 S/CO (0.00-0.99); ~HepC Num1 0.14 S/CO (0.00-0.79); ~Hepatitis C Antibody Nonreactive (Nonreactive)
[2024-09-20 17:37] LABS: RPR Rapid Plasma Reagin NON-REACTIVE (NON-REACTIVE)
[2024-09-21 12:59] LABS: C.Trachomatis RNA TMA, Rectal NOT DETECTED; N.Gonorrhoeae RNA TMA, Rectal NOT DETECTED
[2024-09-21 15:38] LABS: C. Trachomatis RNA TMA, Throat NOT DETECTED; N. gonorrhoeae RNA TMA, Throat NOT DETECTED
== END 2024-09-18 10:18 | disposition home or self-care (01) ==
LOC: HO.HHCL 10:17
PROVIDERS: Visit Provider Nurse Practitioner Primary Care
DX: E78.00 Pure hypercholesterolemia, unspecified (principal); Z11.3 Encounter for screening for infections with a predominantly sexual mode of transmission; E03.9 Hypothyroidism, unspecified
CPT/HCPCS: 36415; 80061; 84443; 86592; 86803; 87389; 87491; 87591

== ENCOUNTER 2025-01-08 09:44 | Outpatient (REF) | payer MEDICAID, SELFPAY ==
--- OUTSIDE RECORDS SUMMARY | 2025-01-08 11:05 | XMS_ITS | Encounter Summary ---
Author Organization [employer] Address [address] [facility] 7[address] [place] [address] Care Team Providers Care Manager Regulatory Name Role Phone Radha Crum Primary Care Provider [phone] Reason for Visit * Reason Onset Date Comments Call Back Request 11/20/2024 Encounter Details Date Type Department Care Team ([facility] Contact Info) Description 11/20/2024 Telephone [facility] MEDICINE [address] [place] [address] Radha Crum ANP [address] [place] [address] Call Back Request Social History Tobacco Use Types Packs/Day Years Used Date Smoking Tobacco: Former Cigarettes Smokeless Tobacco: Never Alcohol Use Standard Drinks/Week Comments Yes 0 (1 standard drink = 0.6 oz pur e alcohol) Alcohol Answer Date Recorded How often do you have a drink containing alcohol ? 3 09/18/2024 How many drinks containing a lcohol do you have on a typical day when you are drinking? 2 09/18/2024 How often do you have six or more drinks on one occasion? 3 09/18/2024 Depression Answer Date Recorded Patient Health Questionnaire-9 Score 0 06/12/2024 Patient Health Questionnaire-9 Score 0 06/12/2024 Last PHQ-9: Questionnaire Data Not on file 0 06/12/2024 Housing Stability Answer Date Recorded What is your housing situation today? I have klaudia cagle 09/18/[address] you li ve. Do you have problems with any of the following? None of the above 09/18/2024 Food Insecurity Answer Date Recorded Within the past 12 months, y ou worried that your food would run out before you got money to buy more: Not on file 09/18/2024 Within the past 12 months,th e food you bought just didn't last and you didn't have enough money to get more: Never True Transportation Answer Date Recorded In the past 12 months, has l ack of transportation kept you from medical appts, meetings, work or from getting things needed for daily living? No 09/18/2024 Utilities Answer Date Recorded In the past 12 months, has t he [employer], gas, oil or water company threatened to shut off services in your home? No 09/18/2024 Depression Answer Date Recorded Patient Health Questionnaire-2 Score 0 06/12/2024 Internet Access Answer Date Recorded Internet Access Q1 Yes 09/18/2024 Internet Access Q2 Not on file 09/18/2024 Comments Unknown Sex and Gender Information Value Date Recorded Sex Assigned at Female 07/26/2022 10:16 AM EDT Legal Sex Female 10:16 AM EDT Gender Identity Female 07/26/2022 10:16 AM EDT Sexual Orientation Straight 06/05/2024 8: 40 AM EDT documented as of this encounter Miscellaneous Notes * Telephone Encounter - Mela Briceño RN - 11/21/2024 11:50 AM EST Returned call to pt. Pt states she is interested in starting weight loss medication, states she didthe [facility] weight loss program and it worked for a little while but is hard to maintain with her work schedule. Pt only available for appts on Tuesdays, scheduled for 01/08/25. Advised pt to call back for any cancellations sooner, pt verbalized understanding. * Telephone Encounter - Chris Love - 11/20/2024 2:26 PM EST Tc from pt requesting a callback as pt will like to discuss about medications to loose weight ( no further info discussed). Pt ask call can be returned tomorrow as she goes in to work today and comesout late at night. [phone] documented in this encounter Plan of Treatment Upcoming Encounters Date Type Department Care Team (Late st Contact Info) Description 04/23/2025 9:15 AM EDT Office Visit [facility] MEDICINE [address] [place] [address] Radha Crum ANP [address] [place] [address] documented as of this encounter Visit Diagnoses Not on filedocumented in this encounter Additional Health Concerns Assessment Noted Time PHQ-9 Depression Total Score: 0 06/12/20 24 10:51 AM EDT documented as of this encounter Care Teams Manager Regulatory Relationship Specialty Start Date End Date Radha Crum ANP [address] [place] [id number] PCP - General Family Medicine 09/08/20 documented as of this encounter
--- OUTSIDE RECORDS SUMMARY | 2025-01-08 11:05 | XMS_ITS | Encounter Summary ---
Author Organization [employer] Address [address] [facility] [address] [place] [address] Care Team Providers Care Hospital Orderly Name Role Phone Radames Radha VEE Primary Care Provider [phone] Reason for Visit * Reason Onset Date Comments Med Refill 03/19/2024 Encounter Details Date Type Department Care Team ([facility] st Contact Info) Description 03/19/2024 Refill [facility] MEDICINE [address] [place] [address] Floresita Peterson MD [address] [place] [address] Social History Tobacco Use Types Packs/Day Years Used Date Smoking Tobacco: Never Smokeless Tobacco: Never Alcohol Use Standard Drinks/Week Comments Yes 0 (1 standard drink = 0.6 oz pur e alcohol) Alcohol Answer Date Recorded Frequency of Alcohol Consumption Not on file 09/14/2023 Average Number of Drinks Not on file 023 Frequency of Binge Drinking Not on file 08/27 Score 0 09/14/2023 Depression Answer Date Recorded Patient Health Questionnaire-9 Score 10 09/14/2023 Patient Health Questionnaire-9 Score 10 09/14/2023 Last PHQ-9: Questionnaire Data Not on file 1 11/15/2022 Housing Stability Answer Date Recorded What is your housing situation today? I do not have housing (Staying with others, in a hotel, in a senior living, living outside on the street, on a beach, in a car, or in a park 09/07/[address] you li ve. Do you have problems with any of the following? None of the above 09/07/2023 Food Insecurity Answer Date Recorded Within the past 12 months, y ou worried that your food would run out before you got money to buy more: Never True 09/07/2023 Within the past 12 months,th e food you bought just didn't last and you didn't have enough money to get more: Never True Transportation Answer Date Recorded In the past 12 months, has l ack of transportation kept you from medical appts, meetings, work or from getting things needed for daily living? Yes, it has kept me from medical appointments or getting medications. 09/07/2023 Utilities Answer Date Recorded In the past 12 months, has t he electric, gas, oil or water company threatened to shut off services in your home? No 09/07/2023 Depression Answer Date Recorded Patient Health Questionnaire-2 Score 2 09/14/2023 Comments Unknown Sex and Gender Information Value Date Recorded Sex Assigned at Female 07/26/2022 10:16 AM EDT Legal Sex Female 10:16 AM EDT Gender Identity Female 07/26/2022 10:16 AM EDT Sexual Orientation Straight 06/05/2024 8: 40 AM EDT documented as of this encounter Plan of Treatment Upcoming Encounters Date Type Department Care Team (Late st Contact Info) Description 04/23/2025 9:15 AM EDT Office Visit [facility] MEDICINE [address] [place] [address] Radha Crum ANP [address] [place] [address] documented as of this encounter Visit Diagnoses Not on filedocumented in this encounter Additional Health Concerns Assessment Noted Time PHQ-9 Depression Total Score: 10 023 9:24 AM EST documented as of this encounter Care Teams Hospital Orderly Relationship Specialty Start Date End Date Radha Crum ANP [address] [place] [id number] PCP - General Family Medicine 09/08/20 documented as of this encounter
--- OUTSIDE RECORDS SUMMARY | 2025-01-08 11:05 | XMS_ITS | Clinical Summary ---
Author Organization [employer] Address [address] [facility] 7t [place] [address] Care Team Providers Care Linseed Cake Trimmer Name Role Phone Ant Nia VEE Primary Care Provider [phone] Allergies Active Allergy Reactions Criticality Noted Date Comments Ibuprofen Hives 11/12/2016 Can tolerate Naproxen w/o issues Medications senna (Senokot) 8.6 MG tablet TAKE 2 TABLETS BY MOUTH EVERY DAY NEEDED FOR CONSTIPATION 180 tablet 023 Active cetirizine (ZyrTEC) 10 MG tabletIndications :Non-seasonal allergic rhinitis due to other allergic trigger Take 1 tablet (10 mg) by mouth Once daily as needed for allergies. 90 tablet 1 024 Active triamcinolone (Kenalog) 0.1 % ointmentIndicatio ns:Generalized pruritus Apply topically if needed in the morning and at bedtime for irritation. 453 g 024 Active cholecalciferol (Vitamin D-3) 25 MCG tablet TAKE 1 TABLET BY MOUTH EVERY MORNING 90 tablet 1 024 Active ketoconazole (NIZOral) 2 % shampooIndication s:Seborrheic dermatitis Use 3-4 times per week 240 mL 2 024 Active FT Acid Drywall Application Supervisor 10 MG tabletIndications :Heartburn TAKE 1 TABLET BY MOUTH ONE OR TWO TIMES DAILY NEEDED FOR HEARTBURN 180 tablet 025 Active levothyroxine (Synthroid, Levoxyl) 137 MCG tablet TAKE 1 TABLET BY MOUTH ONCE DAILY 90 tablet 1 025 Active Diclofenac Sodium (Voltaren) 1 % gelIndications:Ac cabazon pain of both knees Apply up to 4x/d to affected joint(s) for pain/swelling 100 g 1 025 Active ondansetron ODT (Zofran-ODT) 4 MG disintegrating tabletIndications :Nausea Take 1 tablet (4 mg) by mouth every 12 (twelve) hours. 20 tablet 025 Active naproxen (Naprosyn) 375 MG tabletIndications :Neck pain 1 tab twice daily as needed for pain, take with food 60 tablet 1 025 Active ondansetron ODT (Zofran-ODT) 4 MG disintegrating tablet Take 1 tablet by mouth every 12 (twelve) hours. 021 2024 Discontinued(R eorder (will not trigger notification to Pharmacy)) Diclofenac Sodium (Voltaren) 1 % gelIndications:Ac cabazon pain of both knees Apply up to 4x/d to affected joint(s) for pain/swelling 100 g 1 024 2024 Discontinued(R eorder (will not trigger notification to Pharmacy)) levothyroxine (Synthroid, Levoxyl) 137 MCG tablet TAKE 1 TABLET BY MOUTH ONCE DAILY 90 tablet 1 024 2024 Discontinued Active Problems Problem Noted Date Diagnosed Date Mixed hyperlipidemia 01/08/2025 Missing teeth, acquired 03/20/2024 Dental plaque 03/20/2024 Healthcare maintenance 09/14/2023 Overview (09/18/2024): Pap: February 2021 NIL, HPV neg. Prefers female provider for exam. Next due February 2026. Mammo 03/2024 BIRADS1 CRC screening not yet due [facility] Eye exam Sep 2024. 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 Assessment & Plan (09/15/2023 9:31 PM EST): Reports UTD with dental and optometry Acquired hypothyroidism 04/18/2017 Overview (01/08/2025): Lab Results Component Value Date TSH 0.65 09/18/2024 -Continues levothyroxine 137mcg daily Alcohol abuse 04/18/2017 Assessment & Plan (09/14/2023 8:58 AM EST): Well controlled, resolved Obesity 04/18/2017 Post-inflammatory hyperpigmentation 04/18/2017 Right upper quadrant pain 04/18/2017 Resolved Problems Problem Noted Date Diagnosed Date Resolved Date Acute vaginitis 01/16/2024 09/18/2024 Assessment & Plan (01/16/2024 6:31 PM EDT): Vaginal exam reassuring, sure swab sent, pt reports symptoms are similar to previous bout, reassuring ua, will treat presumptively with vaginal clindamycin, discontinue if negative sure swab Dysuria 01/16/2024 09/18/2024 Assessment & Plan (01/16/2024 2:07 PM EDT): Ua completed in clinic, culture send due to dysuria Encounters Date Type Department Care Team Description 01/08/2025 9:15 AM EDT Office Visit [facility] [address] [place] [address] Nia Cain ANP Class 1 obesity with serious comorbidity and body mass index (BMI) of 33.0 to 33.9 in adult, unspecified obesity type (Primary Dx); Mixed hyperlipidemia; Acquired hypothyroidism; Muscle cramps; Neck pain 01/08/2025 Travel 01/07/2025 Telephone [facility] [address] [place] [address] Nia Cain ANP Chart Prep 01/01/2025 Travel 12/17/2024 Refill [facility] [address] [place] [address] Nia Cain ANP Nausea (Primary Dx) 12/17/2024 Refill [facility] [address] [place] [address] Nia Cain ANP 12/12/2024 Refill [facility] [address] [place] [address] Nia Cain ANP Acute pain of both knees 12/12/2024 Refill [facility] [address] [place] [address] Nia Cain ANP 12/12/2024 Refill [facility] [address] [place] [address] Nia aCin ANP 12/07/2024 Population Health Risk Score [facility] (C[facility]) Department [address] [place] [phone] Provider, Population Health Generic 11/29/2024 Outside Procedure [facility] [address] [place] [address] Donnell Kearneyn, OD Presbyopia (Primary Dx) 11/28/2024 9:30 AM EST Office Visit [facility] [address] [place] [address] Donnell Kearneyn, OD Hyperopia of both eyes (Primary Dx) 11/23/2024 Refill [facility] [address] [place] [address] Nia Cain ANP Heartburn 11/20/2024 Telephone [facility] [address] [place] [address] Nia Cain ANP Call Back Request 10/24/2024 Telephone [facility] [address] [place] [phone] Rafael Spaulding DMD 10/22/2024 9:30 AM EST Office Visit [facility] [address] [place] [address] Katrin Kearney, OD Graves' disease (Primary Dx); Dry eyes, bilateral; Chorioretinal scar, right; Presbyopia 10/21/2024 Travel 10/16/2024 9:00 AM EST Office Visit [facility] [address] [place] [phone] Rafael Spaulding DMD from Last 3 Months Immunizations Name Administration Dates Next Due Hep A, Adult 06/12/2024 Hep B, adult 08/23/2023,03/22/2023,02/23/2023 05/17/2023 Influenza Injectable Quadriv alant Preservative Free IIV4 MDCK 07/31/2021 Influenza injectable quadriv alent IIV4 with preservative 06/12/2018 Influenza injectable quadriv alent preservative free 06/07/2023,07/13/2022 Influenza, seasonal, injecta ble, preservative free 06/12/2024 Sandra SARS-CoV-2 Vaccination 12/31/2020 Moderna Covid-19 Vaccine 12+ 09/10/2021 Pfizer Covid-19 Vaccine 12+ 09/18/2024, Pfizer Covid-19 Vaccine 12+ Bivalent 07/13/2022 Tdap 02/04/2021 Family History Medical History Relation Name Comments Diabetes Father Thyroid disease Father Breast cancer Maternal Grandmother Fibromyalgia Mother Thyroid disease Mother Relation Name Status Comments Father Maternal Grandmother Alive Mother Other M- emelyn RAMOS Social History Tobacco Use Types Packs/Day Years [...] got money to buy more: Never True 01/08/2025 Within the past 12 months,th e food [...] Orientation Straight 06/05/2024 8: 40 AM EDT Last Filed Vital Signs Vital Sign Reading Time Taken Comments Blood Pressure 125/65 01/08/2025 9:11 AM EDT Pulse 68 01/08/2025 9:11 AM EDT Temperature 36.8 ??C (98.2 ??F) 09/18/2024 9:49 AM ES T Respiratory Rate 16 01/08/2025 9:11 AM EDT Oxygen Saturation 99% 09/18/2024 9:49 AM EST Inhaled Oxygen Concentration - - Weight 83 kg (183 lb) 01/08/2025 9:11 AM EDT Height 157.5 cm (5' 2 ) 01/08/2025 9:11 AM EDT Body Mass Index 33.47 01/08/2025 9:11 AM EDT Plan of Treatment Upcoming Encounters Date Type Department Care Team (Late st Contact Info) Description 04/23/2025 9:15 AM EDT Office Visit [facility] [address] [place] [address] Nia Cain ANP [address] [place] [address] Health Maintenance Due Date Last Done Comments Family Planning (PISQ) 1995 Dental X-Ray: Full Mouth 07/29/2024 07/28/2021, 05/0 09/2016 Dental Prophylaxis 09/20/2024 03/20/2024, 0 04/20/2022, 07/29/2021, Additional history exists Dental Oral Exam 10/14/2024 04/12/2024, , 07/28/2021, Additional history exists Dental X-Ray: Bitewings 03/21/2025 03/20/2024 Mammogram 04/24/2025 04/24/2024, 03/28, 05/10/2023, Additional history exists Depression Screening 06/12/2025 06/12/2024, 06/12/20 Alcohol/Substance Use Screening 09/18/2025 09/18/2024 SDOH Screening 01/08/2026 01/08/2025 Tobacco Screening 01/08/2026 01/08/2025 Cervical Cancer Screening 03/05/2026 HPV/Cotest 03/05/2026 03/05/2021, 06/15/2017 Pap Smear 03/05/2026 03/05/2021, 03/05/2021 Lipid Panel 09/18/2029 09/18/2024, 08/27, 01/05/2021 DTaP/Tdap/Td Vaccines (2 - Td or Tdap) 02/04/2031 02/04/2021 Zoster Vaccines (1 of 2) 2031 RSV Patients and Patients Aged 60 years or older (1 - 1-dose 75+ series) 2056 Hepatitis B Vaccines Completed 08/23/2023, 03/22/2023, 02/23/2023 Hepatitis A Vaccines Aged Out 06/12/2024 No long er eligible based on patient's age to complete this topic Influenza Vaccine Completed 06/12/2024, , 07/13/2022, Additional history exists COVID-19 Vaccine Completed 09/18/2024, 10/2022, 07/13/2022, Additional history exists HIV Screening Completed 09/18/2024, 08/27, 01/05/2021 Hepatitis C Screening Completed 09/18/2024 , 09/14/2023, 01/05/2021 HIB Vaccines Aged Out No longer eligi ble based on patient's age to complete this topic HPV Vaccines Aged Out No longer eligi ble based on patient's age to complete this topic IPV Vaccines Aged Out No longer eligi ble based on patient's age to complete this topic Meningococcal Vaccine Aged Out No cori alexis eligible based on patient's age to complete this topic Pneumococcal Vaccine: Pediatrics (0 to 5 Years) and At-Risk Patients (6 to 49) Years) Aged Out No longer eligible based on patient's age to complete this topic RSV under 20 months Aged Out No longe r eligible based on patient's age to complete this topic Rotavirus Vaccines Aged Out No longer eligible based on patient's age to complete this topic Procedures Procedure Name Priority Date/Time Associated Diagnosis Comments NO CHARGE PROCEDURE Routine 10/16/2024 9 :00 AM EST HEPATITIS C AB W/REFL TO HCV RNA, QN, PCR Routine 09/18/2024 10:20 AM EST Routine screening for STI (sexually transmitted infection) HIV 1/2 ANTIGEN/ANTIBODY, FOURTH GENERATION W/RFL Routine 09/18/2024 10:20 AM EST Routine screening for STI (sexually transmitted infection) LIPID PANEL, STANDARD Routine 09/18/2024 10:20 AM EST High cholesterol BI MAMMOGRAM SCREENING TOMOSYNTHESIS BILATERAL Routine 04/24/2024 11:05 AM EDT PERIODIC ORAL EVALUATION - ESTABLISHED PATIENT Routine 04/12/2024 11:00 AM EDT Full PROPHYLAXIS - ADULT Routine 03/20/2024 10:00 AM EDT Dental plaque PANORAMIC RADIOGRAPHIC IMAGE Routine 07/28/2021 12:00 AM EDT HPV MRNA E6/E7 Routine 03/05/2021 12:02 PM EDT HM PAP/HPV Routine 03/05/2021 from Last 3 Months or Most Recently Relevant to Health Maintenance Results * Hepatitis C Antibody with Reflex to HCV, RNA, Quantitative, Real-Time PCR (09/18/2024 10:20 AM EST) Hepatitis C Antibody Nonreactive Nonreactive [facility] Comment:Antibodies to HCV no t detected; does not exclude early acuteHCV infection. Blood Venous blood specimen / Unknown 09/18/2024 10:20 AM EST 09/18/2024 11:02 AM EST us Nia VEE LAB BLOOD ORDERABLES Final Resul t [facility] [address] [place] [phone] * HIV-1/2 Antigen and Antibodies, Fourth Generation, with Reflexes (09/18/2024 10:20 AM EST) HIV AB/AG Nonreactive Nonreactive [facility] Comment:HIV-1 p24 Ag and/or HIV-1/HIV-2 Ab not detected.A test result that is nonreactive does not exclude thepossibility of exposure to or infection with HIV-1 and/orHIV-2. Nonreactive results in this assay for individualswith prior exposure to HIV-1 and/or HIV-2 may be due toantigen and antibody levels that are below the limit ofdetection of this assay.The Yun Yun HIV Ag/Ab Combo assay result andsupplemental assay results should be interpreted inconjunction with the patient's clinical presentation,history and other laboratory results. If the results areinconsistent with clinical evidence, additional testing issuggested to confirm the result. Blood Venous blood specimen / Unknown 09/18/2024 10:20 AM EST 09/18/2024 11:02 AM EST [facility] LAB BLOOD ORDERABLES Final Resul t [facility] [address] [place] [phone] * (ABNORMAL) Lipid Panel, Standard (09/18/2024 10:20 AM EST) Triglycerides 71 <150 mg/dL [facility] Comment:Desirable Triglyceri de: less than 150 mg/dLBorderline High Triglyceride 150-199 mg/dLHigh Triglyceride: 200-499 mg/dLVery High Triglyceride: greater than or equal to 5OO mg/dL Cholesterol 210(H) <200 mg/dL [facility] Comment:Desirable Cholestero l: less than 200 mg/dLBorderline High Cholesterol: 200-239 mg/dLHigh Cholesterol: greater than 239 mg/dL LDL Cholesterol Calculated 128(H) <100 mg/dL [facility] Comment:Desirable LDL: less than 100 mg/dLNear Optimal/Above Optimal LDL: 110- 129 mg/dLBorderline High LDL: 130-159 mg/dLHigh LDL: 160-189 mg/dLVery High LDL: greater than or equal to 190 mg/dL HDL Cholesterol 68 >40 mg/dL [facility] Comment:Desirable HDL: great er than 40 mg/dL Note: This HDL assay may give artificially low results in patients with liver disease. Blood Venous blood specimen / Unknown 09/18/2024 10:20 AM EST 09/18/2024 11:02 AM EST us Nia Cain ANP LAB BLOOD ORDERABLES Final Resul t [facility] [address] [place] [phone] [phone] * BI Mammogram Screening Tomosynthesis Bilateral (04/24/2024 11:05 AM EDT) Anatomical Region Laterality Modality Breast Bilateral Mammography 04/24/2024 11:0 5 AM EDT Narrative 05/09/2024 9:42 PM EDT ? [facility] [place] ? [address] ?[place] [address] ? Mammography Report ? Signed ? Patient: Espinoza,Annalise M ?MR#: [id number] ?? 0 ? : 1980 ?Acct:[id number] ? Age/Sex: 43 / F ?ADM Date: 07/30/24 ? Loc: HO.MAMMO ? Attending : Nia Cain REHABILITATION CLERK ? Ordering Physician: NIA CAIN NP ?Results: 1Negative ? Date of Service: 04/24/24 ?Follow Up: 1 Year From Orig ?? inal Mammogram ? Procedure(s): MM tomosynthesis screening BI ?? Accession Number(s): [id number] ? cc: ANT,NIA IRVING ? EXAMINATION: ?? MM SCREENING DIGITAL BREAST TOMOSYNTHESIS, BILATERAL ? CLINICAL INFORMATION: ? Screening. Asymptomatic. ? COMPARISON: ?? Mammography: This study is compared with prior exams dating back to ?? 2018. ? TECHNIQUE: ?? Digital breast tomosynthesis is performed in both the craniocaudal and ?? mediolateral oblique views along with computer-aided detection (CAD). ?? Synthesized 2D images are generated from the tomosynthesis. ? FINDINGS: ?? There are scattered areas of fibroglandular density (ACR BI-RADS breast ?? composition Category b). ? There are no significant masses, abnormal calcifications, or other ?? abnormalities. ? MM/MM tomosynthesis screening BI ?? IMPRESSION: ?? No mammographic evidence of malignancy. ? ASSESSMENT: ? BI-RADS BI-RADS 1 - Negative ? RECOMMENDATION: ?? Routine annual mammography screening. ? 1 year F/U ? This examination should not preclude the clinical evaluation of a ?? suspicious palpable abnormality. ? This patient's information was entered into a reminder system with a ?? target due date for their next mammogram. ? Dictated By: ?Adriana Cortes MD ? Signed By: ?<Electronically signed by Adriana Cortes MD in OV> ? 05/09/248 ? DD/ 1105 ? TD/TT: ? Autism Motor Specialist: ? Procedure Note James, Image - 05/09/2024 [place] [facility] [address] [place] [address] Mammography Report Signed Patient: Annalise Espinoza [facility]#: [id number] 0 : 1980Acct:[id number] Age/Sex: 43 / FADM Date: 04/24/24 Loc: HO.MAMMO Attending Dr: Nia Cain REHABILITATION CLERK Ordering Physician: NIA CAIN NPResults: 1Negative Date of Service: 04/24/24Follow Up: 1 Year From Orig inal Mammogram Procedure(s): MM tomosynthesis screening BI Accession Number(s): [id number] cc: NIA CAIN NP EXAMINATION: MM SCREENING DIGITAL BREAST TOMOSYNTHESIS, BILATERAL CLINICAL INFORMATION: Screening. Asymptomatic. COMPARISON: Mammography: This study is compared with prior exams dating back to 2018. TECHNIQUE: Digital breast tomosynthesis is performed in both the craniocaudal and mediolateral oblique views along with computer-aided detection (CAD). Synthesized 2D images are generated from the tomosynthesis. FINDINGS: There are scattered areas of fibroglandular density (ACR BI-RADS breast composition Category b). There are no significant masses, abnormal calcifications, or other abnormalities. MM/MM tomosynthesis screening BI IMPRESSION: No mammographic evidence of malignancy. ASSESSMENT: BI-RADS BI-RADS 1 - Negative RECOMMENDATION: Routine annual mammography screening. 1 year F/U This examination should not preclude the clinical evaluation of a suspicious palpable abnormality. This patient's information was entered into a reminder system with a target due date for their next mammogram. Dictated By: Adriana Cortes MD Signed By: <Electronically signed by Adriana Cortes MD in OV> 05/09/24 2138 DD/ 1105 TD/TT: Autism Motor Specialist: Nia Cain [facility] BI PROCEDURES Final Result * HPV mRNA E6/E7 (03/05/2021 12:02 PM EDT) HPV nRNA E6/E7 Not Detected Not Detected [facility] Comment: Methodology: Stock Dealer-Mediated Amplification This assay detects E6/E7 viral messenger RNA (mRNA) from 14 high-risk HPV types (16,18,31,33,35,39,45,51,52,56,58,59,66,68). ? The analytical performance characteristics of this assay have been determined by [employer]. The modifications have not been cleared or approved by the FDA. This assay has been validated pursuant to the CLIA regulations and is used for clinical purposes. ?? For additional information, please refer to http://education.Spontly/faq/XEQ445d4 (This link if provided for information/ educational purposes only.) 03/05/2021 12:0 2 PM EDT Veena METZGER LAB BLOOD ORDERABLES Frances l Result [facility] [address] * Pap Smear (03/05/2021) Pathologist [facility] Pap smear performed Historical Provider MD HEALTH MAINTENANCE Final Result from Last 3 Months or Most Recently Relevant to Health Maintenance Insurance [facility] C3 DENTAL-[facility] MEDICAID STAND ADULT HSN PARTIAL DENTAL-[facility] MEDICAID STAND ADULT Care Teams Linseed Cake Trimmer Relationship Specialty Start Date End Date Nia Cain ANP [address] [place] [phone] PCP - General Family Medicine 09/08/20
--- OUTSIDE RECORDS SUMMARY | 2025-01-08 11:05 | XMS_ITS | Encounter Summary ---
Author Organization [employer] Address [address] [facility] 7t [place] [address] Care Team Providers Care Sales Audit Clerk Name Role Phone Radha Crum Primary Care Provider [phone] Reason for Visit * Reason Onset Date Comments Med Refill 03/28/2023 Encounter Details Date Type Department Care Team ([facility] st Contact Info) Description 03/28/2023 Telephone [facility] [address] [place] [address] Radha Crum ANP [address] [place] [address] Med Refill Social History Tobacco Use Types Packs/Day Years Used Date Smoking Tobacco: Never Assessed Comments Unknown Sex and Gender Information Value Date Recorded Sex Assigned at Female 07/26/2022 10:16 AM EDT Legal Sex Female 10:16 AM EDT Gender Identity Female 07/26/2022 10:16 AM EDT Sexual Orientation Straight 06/05/2024 8: 40 AM EDT COVID-19 Exposure Response Date Recorded In the last 10 days, have yo u been in contact with someone who was confirmed or suspected to have Coronavirus/COVID-19? Unable to assess 03/22/2023 9:03 AM EDT documented as of this encounter Miscellaneous Notes * Telephone Encounter - Piedad Dorantes LPN - 03/28/2023 12:35 PM EDT Medication pended to PCP awaiting approval. * Telephone Encounter - Allyson Carlos - 03/28/2023 12:18 PM EDT Tc from pt requesting medication refill on Levoxyl 137 MCG tablet documented in this encounter Plan of Treatment Upcoming Encounters Date Type Department Care Team (Late st Contact Info) Description 04/23/2025 9:15 AM EDT Office Visit [facility] [address] [place] [address] Radha Crum ANP [address] [place] [address] documented as of this encounter Visit Diagnoses Not on filedocumented in this encounter Care Teams Sales Audit Clerk Relationship Specialty Start Date End Date Radha Crum ANP [address] [place] [phone] PCP - General Family Medicine 09/08/20 documented as of this encounter
--- OUTSIDE RECORDS SUMMARY | 2025-01-08 11:05 | XMS_ITS | Encounter Summary ---
Author Organization [facility] Address [address] [facility] 7t [place] [address] Care Team Providers Care Rheostat Assembler Name Role Phone Radha Crum Primary Care Provider [phone] Encounter Details Date Type Department Care Team (Latest Contact Info) Description 07/29/2021 Abstract [facility] CONVERSIONS Dental, Provider, DDS Social History Tobacco Use Types Packs/Day Years [...] Description 04/23/2025 9:15 AM EDT Office Visit [facility] [address] [place] [address] Radha Crum ANP [address] [place] [address] documented as of this encounter Visit Diagnoses Not on filedocumented in this encounter Care Teams Rheostat Assembler Relationship Specialty Start Date End Date Radha Crum ANP [address] [place] [address] PCP - General Family Medicine 09/08/20 documented as of this encounter
--- OUTSIDE RECORDS SUMMARY | 2025-01-08 11:06 | XMS_ITS | Encounter Summary ---
Author Organization [employer] Address [address] [facility] 7t [place] [address] Care Team Providers Care Pharmacy Intern Name Role Phone Radha Crum Primary Care Provider [phone] Reason for Visit * Reason Onset Date Comments Appointment Request 08/22/2023 Encounter Details Date Type Department Care Team ([facility] Contact Info) Description 08/22/2023 Telephone [facility] [address] [place] [address] Radha Crum ANP [address] [place] [address] Appointment Request Social History Tobacco Use Types Packs/Day Years Used Date Smoking Tobacco: Never Smokeless Tobacco: Never Alcohol Use Standard Drinks/Week Comments Yes 0 (1 standard drink = 0.6 oz pur e alcohol) Comments Unknown Sex and Gender Information Value Date Recorded Sex Assigned at Female 07/26/2022 10:16 AM EDT Legal Sex Female 10:16 AM EDT Gender Identity Female 07/26/2022 10:16 AM EDT Sexual Orientation Straight 06/05/2024 8: 40 AM EDT documented as of this encounter Miscellaneous Notes * Telephone Encounter - Kenna Maldonado - 08/22/2023 4:53 PM EST Tc from pt requesting an appt for a physical that is needed for work . Manager Wind tried booking but pt is preferring an appt Tuesday Mornings due transportation. Please contact pt at [phone] documented in this encounter Plan of Treatment Upcoming Encounters Date Type Department Care Team (Late st Contact Info) Description 04/23/2025 9:15 AM EDT Office Visit [facility] [address] [place] [address] Radha Crum ANP [address] [place] [address] documented as of this encounter Visit Diagnoses Not on filedocumented in this encounter Care Teams Pharmacy Intern Relationship Specialty Start Date End Date Radha Crum ANP [address] [place] [id number] PCP - General Family Medicine 09/08/20 documented as of this encounter
--- OUTSIDE RECORDS SUMMARY | 2025-01-08 11:06 | XMS_ITS | Encounter Summary ---
Author Organization [employer] Address [address] [facility] 7t [place] [address] Care Team Providers Care Surveying Technician Name Role Phone Radha Crum Primary Care Provider [phone] Reason for Visit * Reason Onset Date Comments Results 07/14/2023 Encounter Details Date Type Department Care Team ([facility] Contact Info) Description 07/14/[address] [facility] MED[facility]INE [address] [place] [address] Radha Crum ANP [address] [place] [address] Results Social History Tobacco Use Types Packs/Day Years [...] encounter Miscellaneous Notes * Telephone Encounter - Allyson Carlos - 07/25/2023 3:32 PM EDT Tc from pt calling in regards to message above. Please contact pt at [phone] * Telephone Encounter - MARIUSZ Dunlap - 07/15/2023 5:22 PM EDT Called pt to review XR, no answer, unable to leave message, mailbox full. * Telephone Encounter - Allyson Terrance - 07/14/2023 1:20 PM EDT Tc from pt requesting results on x-ray to the hip and back. Please contact pt at [phone] documented in this encounter Plan of Treatment Upcoming Encounters Date Type Department Care Team (Late st Contact Info) Description 04/23/2025 9:15 AM EDT Office Visit [facility] MEDICINE [address] [place] [address] Radha Crum ANP [address] [place] [address] documented as of this encounter Visit Diagnoses Not on filedocumented in this encounter Care Teams Surveying Technician Relationship Specialty Start Date End Date Radha Crum ANP [address] [place] [id number] PCP - General Family Medicine 09/08/20 documented as of this encounter
--- OUTSIDE RECORDS SUMMARY | 2025-01-08 11:06 | XMS_ITS | Encounter Summary ---
Author Organization [employer] Address [address] [facility] 7t [place] [address] Care Team Providers Care Tobacco Conditioner Name Role Phone Radha Crum Primary Care Provider [phone] Reason for Visit * Reason Onset Date Comments Med Refill 06/19/2024 Encounter Details Date Type Department Care Team (Late st Contact Info) Description 06/19/[address] [facility] MEDICINE [address] [place] [address] Radha Crum ANP [address] [place] [address] Social History Tobacco Use Types Packs/Day Years [...] with others, in a hotel, in a fpc, living outside on the street, on a [...] Recorded Patient Health Questionnaire-2 Score 0 06/12/2024 Comments Unknown Sex and Gender Information Value [...] 04/23/2025 9:15 AM EDT Office Visit [facility] MEDICINE [address] [place] [address] Radha Crum ANP [address] [place] [address] documented as of this encounter Visit Diagnoses Not on filedocumented in this encounter Additional Health Concerns Assessment Noted Time PHQ-9 Depression Total Score: 0 06/12/20 24 10:51 AM EDT documented as of this encounter Care Teams Tobacco Conditioner Relationship Specialty Start Date End Date Radha Crum ANP [address] [place] [address] PCP - General Family Medicine 09/08/20 documented as of this encounter
--- OUTSIDE RECORDS SUMMARY | 2025-01-08 11:06 | XMS_ITS | Encounter Summary ---
Author Organization [employer] Address [address] [facility] 7t [place] [address] Care Team Providers Care Timber Management Specialist Name Role Phone Radha Crum Primary Care Provider [phone] Reason for Visit * Reason Onset Date Comments Chart Prep 01/07/2025 Encounter Details Date Type Department Care Team ([facility] Contact Info) Description 01/07/2025 Telephone [facility] MEDICINE [address] [place] [address] Radha Crum ANP [address] [place] [address] Chart Prep Social History Tobacco Use Types Packs/Day Years [...] encounter Miscellaneous Notes * Telephone Encounter - Guerda Draper [place] - 01/07/2025 9:05 AM EDT Chart Prep Labs: done Images: not applicable Vaccines due: Updated Referrals: Radiology n/a Screenings: Not Applicable Overdue care gaps: SDOH and Disability documented in this encounter Plan of Treatment Upcoming Encounters Date Type Department Care Team (Late st Contact Info) Description 04/23/2025 9:15 AM EDT Office Visit [facility] MEDICINE [address] [place] [address] Radha Crum ANP [address] [place] [address] documented as of this encounter Visit Diagnoses Not on filedocumented in this encounter Additional Health Concerns Assessment Noted Time PHQ-9 Depression Total Score: 0 06/12/20 10:51 AM EDT documented as of this encounter Care Teams Timber Management Specialist Relationship Specialty Start Date End Date Radha Crum ANP [address] [place] [id number] PCP - General Family Medicine 09/08/20 documented as of this encounter
--- OUTSIDE RECORDS SUMMARY | 2025-01-08 11:06 | XMS_ITS | Encounter Summary ---
Author Organization [employer] Address [address] [facility] 7t [place] [address] Care Team Providers Care Crew Manager Name Role Phone Radames Radha VEE Primary Care Provider [phone] Reason for Visit * Reason Comments Med Refill Encounter Details Date Type Department Care Team ([facility] Contact Info) Description 04/24/2024 Refill [facility] MEDICINE [address] [place] [address] Andie Garcia MD [address] [place] [address] Social History Tobacco Use Types Packs/Day Years [...] with others, in a hotel, in a detention, living outside on the street, on a [...] Office Visit [facility] MEDICINE [address] [place] [address] Radha Crum ANP [address] [place] [address] documented as of this encounter Visit Diagnoses Not on filedocumented in this encounter Additional Health Concerns Assessment Noted Time PHQ-9 Depression Total Score: 10 023 9:24 AM EST documented as of this encounter Care Teams Crew Manager Relationship Specialty Start Date End Date Radha Crum ANP [address] [place] [address] PCP - General Family Medicine 09/08/20 documented as of this encounter
--- OUTSIDE RECORDS SUMMARY | 2025-01-08 11:06 | XMS_ITS | Encounter Summary ---
Author Organization [employer] Address [address] [facility] [address] 7[address] [place] [address] Care Team Providers Care Lay Out Machine Operator Name Role Phone Radha Crum MARIUSZ Primary Care Provider [phone] Encounter Details Date Type Department Care Team (Latest Contact Info) Description 01/08/2025 Travel Social History Tobacco Use Types Packs/Day Years [...] Description 04/23/2025 9:15 AM EDT Office Visit [facility] MEDICINE [address] [place] [address] Radha Crum ANP [address] [place] [address] documented as of this encounter Visit Diagnoses Not on filedocumented in this encounter Additional Health Concerns Assessment Noted Time PHQ-9 Depression Total Score: 0 06/12/20 24 10:51 AM EDT documented as of this encounter Care Teams Lay Out Machine Operator Relationship Specialty Start Date End Date Radha Crum ANP [address] [place] [address] PCP - General Family Medicine 09/08/20 documented as of this encounter
--- OUTSIDE RECORDS SUMMARY | 2025-01-08 11:06 | XMS_ITS | Encounter Summary ---
Author Organization [employer] Address [address] [facility] 7t [place] [address] Care Team Providers Care Elevated Work Platform Operator Name Role Phone Radha Crum Primary Care Provider Reason for Visit * Reason Onset Date Comments Med Refill 12/12/2024 Encounter Details Date Type Department Care Team ([facility] st Contact Info) Description 12/12/2024 Refill [facility] MEDICINE [address] [place] [address] Radha Crum ANP [address] [place] [address] Social History Tobacco Use Types Packs/Day Years [...] Description 04/23/2025 9:15 AM EDT Office Visit [facility] MEDICINE [address] [place] [address] Radha Crum ANP [address] [place] [address] documented as of this encounter Visit Diagnoses Not on filedocumented in this encounter Additional Health Concerns Assessment Noted Time PHQ-9 Depression Total Score: 0 06/12/20 24 10:51 AM EDT documented as of this encounter Care Teams Elevated Work Platform Operator Relationship Specialty Start Date End Date Radha Crum ANP [address] [place] [address] PCP - General Family Medicine 09/08/20 documented as of this encounter
--- OUTSIDE RECORDS SUMMARY | 2025-01-08 11:06 | XMS_ITS | Encounter Summary ---
Author Organization [employer] Address [address] [facility] 7t [place] [address] Care Team Providers Care Director Internal Audit Name Role Phone Radha Crum Primary Care Provider [phone] Reason for Visit * Reason Comments Weight Management Encounter Details Date Type Department Care Team ([facility] st Contact Info) Description 01/08/2025 9:15 AM EDT Office Visit [facility] MEDICINE [address] [place], [place] [phone] Radha Crum ANP [address] [place] [address] Class 1 obesity with serious comorbidity and body mass index (BMI) of 33.0 to 33.9 in adult, unspecified obesity type (Primary Dx); Mixed hyperlipidemia; Acquired hypothyroidism; Muscle cramps; Neck pain Social History Tobacco Use Types Packs/Day Years [...] AM EDT documented as of this encounter Last Filed Vital Signs Vital Sign Reading Time Taken Comments Blood Pressure 125/65 01/08/2025 9:11 AM EDT Pulse 68 01/08/2025 9:11 AM EDT Temperature - - Respiratory Rate 16 01/08/2025 9:11 AM EDT Oxygen Saturation - - Inhaled Oxygen Concentration - - Weight 83 kg (183 lb) 01/08/2025 9:11 AM EDT Height 157.5 cm (5' 2 ) 01/08/2025 9:11 AM EDT Body Mass Index 33.47 01/08/2025 9:11 AM EDT documented in this encounter Plan of Treatment Upcoming Encounters Date Type Department Care Team (Late st Contact Info) Description 04/23/2025 9:15 AM EDT Office Visit [facility] MEDICINE [address] [place] [address] Radha Crum ANP [address] [place] [address] Scheduled Orders Name Type Priority Associated Diagnoses Orde r Schedule Basic Metabolic Panel Lab Routine Muscle cramps Expected: 01/08/2025 (Approximate), Expires: 01/08/2026 Magnesium Lab Routine Muscle cramps Expected: 01/08/2025, Expires: 01/08/2026 documented as of this encounter Visit Diagnoses Diagnosis Class 1 obesity with serious comorbidity and body mass index (BMI) of 33.0 to 33.9 in adult, unspecified obesity type- Primary Mixed hyperlipidemia Acquired hypothyroidism Unspecified hypothyroidism Muscle cramps Neck pain Cervicalgia documented in this encounter Additional Health Concerns Assessment Noted Time PHQ-9 Depression Total Score: 0 06/12/20 24 10:51 AM EDT documented as of this encounter Care Teams Director Internal Audit Relationship Specialty Start Date End Date Radha Crum ANP [address] [place] [address] PCP - General Family Medicine 09/08/20 documented as of this encounter
--- OUTSIDE RECORDS SUMMARY | 2025-01-08 11:06 | XMS_ITS | Encounter Summary ---
Author Organization [employer] Address [address] [facility] 7t [place] [address] Care Team Providers Care Hair Spring Winder Name Role Phone Radha Crum Primary Care Provider [phone] Reason for Visit * Reason Onset Date Comments Med Refill 12/17/2024 Encounter Details Date Type Department Care Team ([facility] st Contact Info) Description 12/17/2024 Refill [facility] MEDICINE [address] [place] [address] Radha Crum ANP [address] [place] [address] Social History Tobacco Use Types Packs/Day Years [...] Description 04/23/2025 9:15 AM EDT Office Visit [facility] MEDICINE [address] [place] [address] Radha Crum ANP [address] [place] [address] documented as of this encounter Visit Diagnoses Not on filedocumented in this encounter Additional Health Concerns Assessment Noted Time PHQ-9 Depression Total Score: 0 06/12/20 24 10:51 AM EDT documented as of this encounter Care Teams Hair Spring Winder Relationship Specialty Start Date End Date Radha Crum ANP [address] [place] [address] PCP - General Family Medicine 09/08/20 documented as of this encounter
[2025-01-08 11:24] LABS: Anion Gap 10 (12-20); Blood Urea Nitrogen 11 mg/dL (9-16); Calcium 9.1 mg/dL (8.4-10.2); Carbon Dioxide 26 mmol/L (22-29); Chloride 106 mmol/L (96-108); Estimated Glomerular Filt Rate > 60; Glucose Random 87 mg/dL (60-115); Potassium 4.3 mmol/L (3.3-5.1); Sodium 138 mmol/L (135-145)
== END 2025-01-08 09:45 | disposition home or self-care (01) ==
LOC: HO.HHCL 09:44
PROVIDERS: Visit Provider Nurse Practitioner Primary Care
DX: R25.2 Cramp and spasm (principal)
CPT/HCPCS: 36415; 80048; 83735

== ENCOUNTER 2025-04-30 09:28 | Outpatient (REF) | payer MEDICAID, SELFPAY ==
--- OUTSIDE RECORDS SUMMARY | 2025-04-30 09:53 | XMS_ITS | Encounter Summary ---
Author Organization [employer] Address [address] [facility] [address] 7[address] [place] [address] Care Team Providers Care Redevelopment Specialist Name Role Phone Radha Crum Primary Care Provider [phone] Reason for Visit * Reason Comments Med Refill Encounter Details Date Type Department Care Team ([facility] st Contact Info) Description 04/30/2025 Refill [facility] MEDICINE [address] [place] [address] Radha Crum ANP [address] [place] [address] Acute pain of both knees Social History Tobacco Use Types Packs/Day Years [...] as of this encounter Plan of Treatment Not on file documented as of this encounter Visit Diagnoses Diagnosis Acute pain of both knees documented in this encounter Additional Health Concerns Assessment Noted Time PHQ-9 Depression Total Score: 0 06/12/20 10:51 AM EDT documented as of this encounter Care Teams Redevelopment Specialist Relationship Specialty Start Date End Date Radha Crum ANP [address] [place] [address] PCP - General Family Medicine 09/08/20 documented as of this encounter
== END 2025-04-30 09:29 | disposition home or self-care (01) ==
LOC: HO.MAMMO 09:28
PROVIDERS: PCP Nurse Practitioner Primary Care; Visit Provider Nurse Practitioner Primary Care
DX: Z12.31 Encounter for screening mammogram for malignant neoplasm of breast (principal)
CPT/HCPCS: 77063; 77067

== ENCOUNTER → 2025-04-30 09:30 | Outpatient (BNV) | payer MEDICAID, SELFPAY | PROVIDERS: PCP Nurse Practitioner Primary Care; Visit Provider Internal Medicine | DX: Z12.31 Encounter for screening mammogram for malignant neoplasm of breast (principal) | CPT/HCPCS: 77063; 77067 ==